=== PATIENT | male | born 1980 | race Hispanic/Latino ===

== ENCOUNTER 2016-08-01 06:41 | Inpatient (IN) | payer OTHER ==
[2016-08-01 07:32] LABS: Hematocrit 42.7 % (35.5-45.6); Mean Corpuscular HGB Conc 33 % (32-34); Mean Corpuscular Hemoglobin 29 pg (28-32); Mean Corpuscular Volume 87 fl (84-94); Platelet Count 276 K/mm3 (140-440); Red Cell Distribution Width 14.7 % (13.2-15.2); White Blood Count 20.2 K/mm3 (4.5-11.0)
[2016-08-01 07:39] LABS: Alanine Aminotransferase 15 units/L (7-56); Albumin 4.2 g/dL (3.9-5); Albumin/Globulin Ratio 1.2 %; Alkaline Phosphatase 102 units/L (35-129); Anion Gap 21 mmol/L; BUN/Creatinine Ratio 14.54; Blood Urea Nitrogen 16 mg/dL (9-20); Carbon Dioxide 27 mmol/L (22-30); Chloride 95.3 mmol/L (98-107); Glucose 222 mg/dL (75-100); Lipase 18 units/L (13-60); Potassium 3.5 mmol/L (3.6-5.0); Sodium 140 mmol/L (137-145); Total Protein 7.7 g/dL (6.3-8.2)
[2016-08-01] MEDS ORDERED: ZOFRAN IV ONE ×2 (08:30→09:52)
[2016-08-01] MEDS ORDERED: MORPHINE IV ONE (08:42)
[2016-08-01] MEDS ORDERED: NACL 0.9% 1000 ML 1,000 ML IV ONE (08:43)
[2016-08-01] MEDS ORDERED: ZOSYN/NS 4.5GM/100ML 4.5 GM/100 ML VIAL IV ONE (08:43)
--- NOTE | 2016-08-01 08:54 | XRay Report ---
AP CHEST: HISTORY: Hypertension AP view of the chest demonstrates a normal mediastinal and cardiac contour with clear lungs and normal bony and soft tissue structures. No significant change since 04/07/15. IMPRESSION: Unremarkable AP chest.
[2016-08-01 09:21] LABS: Urine Drugs of Abuse Note Disclamer
[2016-08-01 09:47] LABS: Bacteria,Urine 1+ /HPF (Negative); Bilirubin,Urine NEG (Negative); Blood,Urine NEG (Negative); Ketones,Urine TR mg/dL (Negative); Leukocyte Esterase,Urine TR (Negative); Mucus,Urine FEW /HPF; Nitrite,Urine NEG (Negative); Urobilinogen,Urine < 2.0 mg/dL (<2.0)
--- NOTE | 2016-08-01 10:09 | Ultrasound Report ---
ULTRASOUND ABDOMEN LIMITED INDICATION: Right upper quadrant pain, bilious vomiting, gas. COMPARISON: 04/08/2015. FINDINGS: Right upper quadrant ultrasound in part limited due to bowel gas, though again suggests slight diffuse hepatic echogenic coarsening with right hepatic lobe approximately 18 cm in length. No focal suspicious lesions or biliary dilatation. Gallbladder again demonstrates mild sludge/tiny stones and a small non-shadowing echogenicity along the gallbladder wall/possible 3 mm polyp as on image 31. No pericholecystic fluid or positive sonographic Suarez's sign. Gallbladder wall thickness is 2.5 mm. Common bile duct is now 12.5 mm, previously 5 mm. Normal imaged pancreas, though its tail and head obscured due to bowel gas. Normal IVC and abdominal aorta. Nonhydronephrotic 10.9 x 4.6 x 5 cm right kidney with cortical thickness of 1.9 cm. CONCLUSION: 1. New/increased CBD dilation at the ligia hepatis noted in this patient with known gallbladder sludge/stones, as described. Choledocholithiasis not excluded in the given setting without sonographic evidence to support acute cholecystitis at this time. Please correlate. 2. Few other findings, as above. Thank you for the opportunity to participate in this patient's care.
[2016-08-01 10:24] LABS: Basophils % (Manual) 0 % (0.0-1.8); Blastocytes % (Manual) 0 %; Diff Status Complete; Eosinophils % (Manual) 0 % (0.0-4.3); Platelet Estimate Cons; RBC Morphology Normal
--- NOTE | 2016-08-01 10:47 | History and Physical Report ---
History of Present Illness Date of examination: 08/01/16 Date of admission: 08/01/16 Chief complaint: N/V, abd pain History of present illness: This is a 34-year-old male who presents to the emergency department with complaints of nausea, vomiting and right lower quadrant abdominal pain. Patient denies any hematemesis, melena, hematochezia or diarrhea. The vomiting however is described as bilious. Patient denies any chest pain or shortness of breath. No recent sick contacts or travel. Mr Dawkins was seen here in Dec 2014 admitted with initial abdominal complaints and subsequently went into V fib arrest. He was followed by cardiology with normal coronaries per cath and EF of 45-50%. He was ultimately discharged at that time with a Life vest, however, per note, he refused to wear it after 1 week. Patient was also seen here in April 2015 complaints of nausea vomiting. A gallbladder ultrasound was done at that time suggestive of possible sludge versus stones in the gallbladder. However, there was no indication of obstructive process. CBD and gallbladder were within normal limits. Patient also has a significant past medical history of cocaine use and polysubstance abuse. Past History Past Medical History: other (V. fib arrest, cocaine use polysubstance abuse) Past Surgical History: No surgical history Social history: other (polysubstance abuse and cocaine) Family history: no significant family history Medications and Allergies Allergies Allergy/AdvReac Type Severity Reaction Status Date / Time No Known Allergies Allergy Verified 01/12/15 09:42 Home Medications Medication Instructions Recorded Confirmed Last Taken Type Methadone [Dolophine] 160 mg PO QDAY 01/10/15 08/01/16 01/09/15 History Active Meds: Active Medications Sodium Chloride (Nacl 0.9% 1000 Ml) 1,000 mls @ 125 mls/hr IV ONCE ONE Stop: 08/01/16 16:42 Last Admin: 08/01/16 09:20 Dose: 125 mls/hr Review of Systems All systems: negative Exam - Constitutional Vitals: Temp Pulse Resp BP Pulse Ox 98.1 F 63 16 174/83 100 08/01/16 07:22 08/01/16 09:20 08/01/16 09:20 08/01/16 09:20 08/01/16 09:20 General appearance: Present: no acute distress, well-nourished - EENT Eyes: Present: PERRL ENT: hearing intact, clear oral mucosa - Neck Neck: Present: supple, normal ROM - Respiratory Respiratory effort: normal Respiratory: bilateral: CTA - Cardiovascular Heart Sounds: Present: S1 & S2. Absent: rub, click - Extremities Extremities: pulses symmetrical, No edema Peripheral Pulses: within normal limits - Abdominal General gastrointestinal: Present: soft, non-tender, non-distended, normal bowel sounds Male genitourinary: Present: normal - Integumentary Integumentary: Present: clear, warm, dry - Musculoskeletal Musculoskeletal: gait normal, strength equal bilaterally - Psychiatric Psychiatric: appropriate mood/affect, intact judgment & insight - Neurologic Neurologic: CNII-XII intact, moves all extremities Results - Labs CBC & Chem 7: 08/01/16 07:07 08/01/16 07:07 Labs: Laboratory Last Values WBC 20.2 K/mm3 (4.5-11.0) H 08/01/16 07:07 RBC 4.90 M/mm3 (3.65-5.03) 08/01/16 07:07 Hgb 14.0 gm/dl (11.8-15.2) 08/01/16 07:07 Hct 42.7 % (35.5-45.6) 08/01/16 07:07 MCV 87 fl (84-94) 08/01/16 07:07 MCH 29 pg (28-32) 08/01/16 07:07 MCHC 33 % (32-34) 08/01/16 07:07 RDW 14.7 % (13.2-15.2) 08/01/16 07:07 Plt Count 276 K/mm3 (140-440) 08/01/16 07:07 Add Manual Diff Complete 08/01/16 07:07 Total Counted 100 08/01/16 07:07 Seg Neuts % (Manual) 89.0 % (40.0-70.0) H 08/01/16 07:07 Band Neutrophils % 0 % 08/01/16 07:07 Lymphocytes % (Manual) 6.0 % (13.4-35.0) L 08/01/16 07:07 Reactive Lymphs % (Man) 0 % 08/01/16 07:07 Monocytes % (Manual) 5.0 % (0.0-7.3) 08/01/16 07:07 Eosinophils % (Manual) 0 % (0.0-4.3) 08/01/16 07:07 Basophils % (Manual) 0 % (0.0-1.8) 08/01/16 07:07 Metamyelocytes % 0 % 08/01/16 07:07 Myelocytes % 0 % 08/01/16 07:07 Promyelocytes % 0 % 08/01/16 07:07 Blast Cells % 0 % 08/01/16 07:07 Nucleated RBC % Not Reportable 08/01/16 07:07 Seg Neutrophils # Man 18.0 K/mm3 (1.8-7.7) H 08/01/16 07:07 Band Neutrophils # 0.0 K/mm3 08/01/16 07:07 Lymphocytes # (Manual) 1.2 K/mm3 (1.2-5.4) 08/01/16 07:07 Abs React Lymphs (Man) 0.0 K/mm3 08/01/16 07:07 Monocytes # (Manual) 1.0 K/mm3 (0.0-0.8) H 08/01/16 07:07 Eosinophils # (Manual) 0.0 K/mm3 (0.0-0.4) 08/01/16 07:07 Basophils # (Manual) 0.0 K/mm3 (0.0-0.1) 08/01/16 07:07 Metamyelocytes # 0.0 K/mm3 08/01/16 07:07 Myelocytes # 0.0 K/mm3 08/01/16 07:07 Promyelocytes # 0.0 K/mm3 08/01/16 07:07 Blast Cells # 0.0 K/mm3 08/01/16 07:07 WBC Morphology Not Reportable 08/01/16 07:07 Hypersegmented Neuts Not Reportable 08/01/16 07:07 Hyposegmented Neuts Not Reportable 08/01/16 07:07 Hypogranular Neuts Not Reportable 08/01/16 07:07 Smudge Cells Not Reportable 08/01/16 07:07 Toxic Granulation Not Reportable 08/01/16 07:07 Toxic Vacuolation Not Reportable 08/01/16 07:07 Dohle Bodies Not Reportable 08/01/16 07:07 Pelger-Huet Anomaly Not Reportable 08/01/16 07:07 Gi Rods Not Reportable 08/01/16 07:07 Platelet Estimate Cons 08/01/16 07:07 Clumped Platelets Not Reportable 08/01/16 07:07 Plt Clumps, EDTA Not Reportable 08/01/16 07:07 Large Platelets Not Reportable 08/01/16 07:07 Giant Platelets Not Reportable 08/01/16 07:07 Platelet Satelliting Not Reportable 08/01/16 07:07 Plt Morphology Comment Not Reportable 08/01/16 07:07 RBC Morphology Normal 08/01/16 07:07 Dimorphic RBCs Not Reportable 08/01/16 07:07 Polychromasia Not Reportable 08/01/16 07:07 Hypochromasia Not Reportable 08/01/16 07:07 Poikilocytosis Not Reportable 08/01/16 07:07 Anisocytosis Not Reportable 08/01/16 07:07 Microcytosis Not Reportable 08/01/16 07:07 Macrocytosis Not Reportable 08/01/16 07:07 Spherocytes Not Reportable 08/01/16 07:07 Pappenheimer Bodies Not Reportable 08/01/16 07:07 Sickle Cells Not Reportable 08/01/16 07:07 Target Cells Not Reportable 08/01/16 07:07 Tear Drop Cells Not Reportable 08/01/16 07:07 Ovalocytes Not Reportable 08/01/16 07:07 Helmet Cells Not Reportable 08/01/16 07:07 Tabares-[place] Bodies Not Reportable 08/01/16 07:07 [place] Rings Not Reportable 08/01/16 07:07 Reese Cells Not Reportable 08/01/16 07:07 Bite Cells Not Reportable 08/01/16 07:07 Crenated Cell Not Reportable 08/01/16 07:07 Elliptocytes Not Reportable 08/01/16 07:07 Acanthocytes (Spur) Not Reportable 08/01/16 07:07 Rouleaux Not Reportable 08/01/16 07:07 Hemoglobin C Crystals Not Reportable 08/01/16 07:07 Schistocytes Not Reportable 08/01/16 07:07 Malaria parasites Not Reportable 08/01/16 07:07 Chivo Bodies Not Reportable 08/01/16 07:07 Hem Pathologist Commnt No 08/01/16 07:07 Sodium 140 mmol/L (137-145) 08/01/16 07:07 Potassium 3.5 mmol/L (3.6-5.0) L 08/01/16 07:07 Chloride 95.3 mmol/L (98-107) L 08/01/16 07:07 Carbon Dioxide 27 mmol/L (22-30) 08/01/16 07:07 Anion Gap 21 mmol/L 08/01/16 07:07 BUN 16 mg/dL (9-20) 08/01/16 07:07 Creatinine 1.1 mg/dL (0.8-1.5) 08/01/16 07:07 Estimated GFR > 60 ml/min 08/01/16 07:07 BUN/Creatinine Ratio 14.54 % 08/01/16 07:07 Glucose 222 mg/dL (75-100) H 08/01/16 07:07 Calcium 10.0 mg/dL (8.4-10.2) 08/01/16 07:07 Total Bilirubin 0.60 mg/dL (0.1-1.2) 08/01/16 07:07 AST 8 units/L (5-40) 08/01/16 07:07 ALT 15 units/L (7-56) 08/01/16 07:07 Alkaline Phosphatase 102 units/L (35-129) 08/01/16 07:07 Troponin T < 0.010 ng/mL (0.00-0.029) 08/01/16 07:07 Total Protein 7.7 g/dL (6.3-8.2) 08/01/16 07:07 Albumin 4.2 g/dL (3.9-5) 08/01/16 07:07 Albumin/Globulin Ratio 1.2 % 08/01/16 07:07 Lipase 18 units/L (13-60) 08/01/16 07:07 Urine Color Yellow (Yellow) 08/01/16 09:13 Urine Turbidity Clear (Clear) 08/01/16 09:13 Urine pH 6.0 (5.0-7.0) 08/01/16 09:13 Ur Specific [place] 1.018 (1.003-1.030) 08/01/16 09:13 Urine Protein 30 mg/dl mg/dL (Negative) 08/01/16 09:13 Urine Glucose (UA) Neg mg/dL (Negative) 08/01/16 09:13 Urine Ketones Tr mg/dL (Negative) 08/01/16 09:13 Urine Blood Neg (Negative) 08/01/16 09:13 Urine Nitrite Neg (Negative) 08/01/16 09:13 Urine Bilirubin Neg (Negative) 08/01/16 09:13 Urine Urobilinogen < 2.0 mg/dL (<2.0) 08/01/16 09:13 Ur Leukocyte Esterase Tr (Negative) 08/01/16 09:13 Urine WBC (Auto) 5.0 /HPF (0.0-6.0) 08/01/16 09:13 Urine RBC (Auto) 1.0 /HPF (0.0-6.0) 08/01/16 09:13 U Epithel Cells (Auto) 3.0 /HPF (0-13.0) 08/01/16 09:13 Urine Bacteria (Auto) 1+ /HPF (Negative) 08/01/16 09:13 Calcium Oxalate Crystal 1+ 08/01/16 09:13 Urine Mucus Few /HPF 08/01/16 09:13 Assessment and Plan Assessment and plan: Nausea and vomiting. Continue supportive care. Antiemetics. CBD dilatation.? Choledocholithiasis. Consult GI for further evaluation. Consider surgery consultation. Abdominal pain. As above. Patient does have significant leukocytosis. ? Acute cholecystitis. Check HIDA scan. GI consultation pending. Nonischemic cardiomyopathy. Cardiology evaluation. History of V. fib arrest. Medical noncompliance. History of polysubstance abuse.
[2016-08-01] MEDS ORDERED: MILK OF MAGNESIA PO PRN (10:56)
[2016-08-01] MEDS ORDERED: DULCOLAX PR PRN (10:56)
[2016-08-01] MEDS ORDERED: TYLENOL PO PRN (10:56)
--- NOTE | 2016-08-01 11:03 | Emergency Department Report ---
ED General Adult HPI - General Chief complaint: Chest Pain Stated complaint: CHEST PAIN Time Seen by Provider: 08/01/16 08:17 Source: patient Mode of arrival: Ambulatory Limitations: No Limitations - History of Present Illness Initial comments: In triage as stated that the patient complained of chest and abdominal pain that started at 2 AM with nausea vomiting. The patient does not describe chest pain to me at all. He describes a diffuse abdominal pain which is mostly on the right side of his abdomen. Apparently during his hospitalization in 2004 he was found to have gallbladder sludge and stones. He has a history of cardiomyopathy and previous cardiac arrest. He states that he "gave his chest back". He was previous determined to be noncompliant with wearing his LifeVest. He sustained a cardiac arrest after polysubstance abuse. He has previously been on amiodarone as well. He has had recurrent vomiting which appears to be bilious in nature. He does not report any problems with his bowel movements or apparent GI bleeding. He likewise does not report fever or chills. -: hour(s) Location: abdomen Radiation: non-radiation Severity scale (0 -10): 5 Quality: aching Consistency: intermittent Improves with: none Worsens with: none Associated Symptoms: nausea/vomiting Treatments Prior to Arrival: none - Related Data Home Medications Medication Instructions Recorded Confirmed Last Taken Methadone [Dolophine] 160 mg PO QDAY 01/10/15 08/01/16 01/09/15 Allergies Allergy/AdvReac Type Severity Reaction Status Date / Time No Known Allergies Allergy Verified 01/12/15 09:42 ED Review of Systems ROS: Stated complaint: CHEST PAIN Other details as noted in HPI Constitutional: denies: chills, fever Eyes: denies: eye pain, eye discharge, vision change ENT: denies: ear pain, throat pain Respiratory: denies: cough, shortness of breath, wheezing Cardiovascular: denies: chest pain, palpitations Endocrine: no symptoms reported Gastrointestinal: abdominal pain, nausea, vomiting. denies: diarrhea Genitourinary: denies: urgency, dysuria Musculoskeletal: denies: back pain, joint swelling, arthralgia Skin: denies: rash, lesions Neurological: denies: headache, weakness, paresthesias Psychiatric: denies: anxiety, depression Hematological/Lymphatic: denies: easy bleeding, easy bruising ED Past Medical Hx - Past Medical History Previous Medical History?: No Hx Congestive Heart Failure: No Hx Diabetes: No Hx Asthma: No Hx COPD: No - Surgical History Past Surgical History?: No - Social History Smoking Status: Current Every Day Smoker Substance Use Type: Marijuana - Medications Home Medications: Home Medications Medication Instructions Recorded Confirmed Last Taken Type Methadone [Dolophine] 160 mg PO QDAY 01/10/15 08/01/16 01/09/15 History ED Physical Exam - General Limitations: No Limitations General appearance: alert, in no apparent distress - Head Head exam: Present: atraumatic, normocephalic - Eye Eye exam: Present: normal appearance, PERRL, EOMI. Absent: scleral icterus - ENT ENT exam: Present: mucous membranes moist - Neck Neck exam: Present: normal inspection - Respiratory Respiratory exam: Present: normal lung sounds bilaterally. Absent: respiratory distress - Cardiovascular Cardiovascular Exam: Present: regular rate, normal rhythm. Absent: systolic murmur, diastolic murmur, rubs, gallop - GI/Abdominal GI/Abdominal exam: Present: soft, normal bowel sounds. Absent: distended, tenderness, guarding, rebound, rigid, organomegaly, mass, bruit, pulsatile mass , hernia (the patient has a remarkably normal abdominal exam) - Rectal Rectal exam: Present: deferred - Extremities Exam Extremities exam: Present: normal inspection - Back Exam Back exam: Present: normal inspection - Neurological Exam Neurological exam: Present: alert, oriented X3, CN II-XII intact. Absent: motor sensory deficit - Psychiatric Psychiatric exam: Present: normal affect, normal mood - Skin Skin exam: Present: warm, dry, intact, normal color. Absent: rash ED Course Vital Signs 08/01/16 08/01/16 08/01/16 06:52 07:22 09:20 Temperature 98.1 F 98.1 F Pulse Rate 59 L 66 63 Respiratory 18 16 Rate Blood Pressure 201/105 Blood Pressure 176/89 174/83 [Right] O2 Sat by Pulse 100 100 100 Oximetry - Reevaluation(s) Reevaluation #1: Given analgesia and antiemetic. Spoke to Dr. Fonseca. The patient was admitted to the hospital service for further care and evaluation. I gave him Zosyn considering his elevated white blood cell count and history of gallstones. 08/01/16 11:01 Reevaluation #2: I see that the ultrasound showed increased CBD. Choledocholithiasis cannot be excluded. Further care and evaluation per Dr. Fonseca and I suppose GI consultation. 08/01/16 11:02 ED Medical Decision Making - Lab Data Result diagrams: 08/01/16 07:07 08/01/16 07:07 Laboratory Results - last 24 hr 08/01/16 08/01/16 08/01/16 07:07 07:07 09:13 WBC 20.2 H RBC 4.90 Hgb 14.0 Hct 42.7 MCV 87 MCH 29 MCHC 33 RDW 14.7 Plt Count 276 Add Manual Diff Complete Total Counted 100 Seg Neuts % (Manual) 89.0 H Band Neutrophils % 0 Lymphocytes % (Manual) 6.0 L Reactive Lymphs % (Man) 0 Monocytes % (Manual) 5.0 Eosinophils % (Manual) 0 Basophils % (Manual) 0 Metamyelocytes % 0 Myelocytes % 0 Promyelocytes % 0 Blast Cells % 0 Nucleated RBC % Not Reportable Seg Neutrophils # Man 18.0 H Band Neutrophils # 0.0 Lymphocytes # (Manual) 1.2 Abs React Lymphs (Man) 0.0 Monocytes # (Manual) 1.0 H Eosinophils # (Manual) 0.0 Basophils # (Manual) 0.0 Metamyelocytes # 0.0 Myelocytes # 0.0 Promyelocytes # 0.0 Blast Cells # 0.0 WBC Morphology Not Reportable Hypersegmented Neuts Not Reportable Hyposegmented Neuts Not Reportable Hypogranular Neuts Not Reportable Smudge Cells Not Reportable Toxic Granulation Not Reportable Toxic Vacuolation Not Reportable Dohle Bodies Not Reportable Pelger-Huet Anomaly Not Reportable Gi Rods Not Reportable Platelet Estimate Cons Clumped Platelets Not Reportable Plt Clumps, EDTA Not Reportable Large Platelets Not Reportable Giant Platelets Not Reportable Platelet Satelliting Not Reportable Plt Morphology Comment Not Reportable RBC Morphology Normal Dimorphic RBCs Not Reportable Polychromasia Not Reportable Hypochromasia Not Reportable Poikilocytosis Not Reportable Anisocytosis Not Reportable Microcytosis Not Reportable Macrocytosis Not Reportable Spherocytes Not Reportable Pappenheimer Bodies Not Reportable Sickle Cells Not Reportable Target Cells Not Reportable Tear Drop Cells Not Reportable Ovalocytes Not Reportable Helmet Cells Not Reportable Tabares-[place] Bodies Not Reportable [place] Rings Not Reportable Reese Cells Not Reportable Bite Cells Not Reportable Crenated Cell Not Reportable Elliptocytes Not Reportable Acanthocytes (Spur) Not Reportable Rouleaux Not Reportable Hemoglobin C Crystals Not Reportable Schistocytes Not Reportable Malaria parasites Not Reportable [place] Bodies Not Reportable Hem Pathologist Commnt No Sodium 140 Potassium 3.5 L Chloride 95.3 L Carbon Dioxide 27 Anion Gap 21 BUN 16 Creatinine 1.1 Estimated GFR > 60 BUN/Creatinine Ratio 14.54 Glucose 222 H Calcium 10.0 Total Bilirubin 0.60 AST 8 ALT 15 Alkaline Phosphatase 102 Troponin T < 0.010 Total Protein 7.7 Albumin 4.2 Albumin/Globulin Ratio 1.2 Lipase 18 Urine Color Yellow Urine Turbidity Clear Urine pH 6.0 Ur Specific [place] 1.018 Urine Protein 30 mg/dl Urine Glucose (UA) Neg Urine Ketones Tr Urine Blood Neg Urine Nitrite Neg Urine Bilirubin Neg Urine Urobilinogen < 2.0 Ur Leukocyte Esterase Tr Urine WBC (Auto) 5.0 Urine RBC (Auto) 1.0 U Epithel Cells (Auto) 3.0 Urine Bacteria (Auto) 1+ Calcium Oxalate Crystal 1+ Urine Mucus Few Urine Opiates Screen Ur Barbiturates Screen Ur Phencyclidine Scrn Ur Amphetamines Screen Urine Cocaine Screen 08/01/16 09:13 WBC RBC Hgb Hct MCV MCH MCHC RDW Plt Count Add Manual Diff Total Counted Seg Neuts % (Manual) Band Neutrophils % Lymphocytes % (Manual) Reactive Lymphs % (Man) Monocytes % (Manual) Eosinophils % (Manual) Basophils % (Manual) Metamyelocytes % Myelocytes % Promyelocytes % Blast Cells % Nucleated RBC % Seg Neutrophils # Man Band Neutrophils # Lymphocytes # (Manual) Abs React Lymphs (Man) Monocytes # (Manual) Eosinophils # (Manual) Basophils # (Manual) Metamyelocytes # Myelocytes # Promyelocytes # Blast Cells # WBC Morphology Hypersegmented Neuts Hyposegmented Neuts Hypogranular Neuts Smudge Cells Toxic Granulation Toxic Vacuolation Dohle Bodies Pelger-Huet Anomaly Gi Rods Platelet Estimate Clumped Platelets Plt Clumps, EDTA Large Platelets Giant Platelets Platelet Satelliting Plt Morphology Comment RBC Morphology Dimorphic RBCs Polychromasia Hypochromasia Poikilocytosis Anisocytosis Microcytosis Macrocytosis Spherocytes Pappenheimer Bodies Sickle Cells Target Cells Tear Drop Cells Ovalocytes Helmet Cells Tabares-[place] Bodies [place] Rings [place] Cells Bite Cells Crenated Cell Elliptocytes Acanthocytes (Spur) Rouleaux Hemoglobin C Crystals Schistocytes Malaria parasites [place] Bodies Hem Pathologist Commnt Sodium Potassium Chloride Carbon Dioxide Anion Gap BUN Creatinine Estimated GFR BUN/Creatinine Ratio Glucose Calcium Total Bilirubin AST ALT Alkaline Phosphatase Troponin T Total Protein Albumin Albumin/Globulin Ratio Lipase Urine Color Urine Turbidity Urine pH Ur Specific [place] Urine Protein Urine Glucose (UA) Urine Ketones Urine Blood Urine Nitrite Urine Bilirubin Urine Urobilinogen Ur Leukocyte Esterase Urine WBC (Auto) Urine RBC (Auto) U Epithel Cells (Auto) Urine Bacteria (Auto) Calcium Oxalate Crystal Urine Mucus Urine Opiates Screen Presumptive negative Ur Barbiturates Screen Presumptive negative Ur Phencyclidine Scrn Presumptive negative Ur Amphetamines Screen Presumptive negative Urine Cocaine Screen Presumptive negative - EKG Data -: EKG Interpreted by Me EKG shows normal: sinus rhythm - EKG Data Interpretation: nonspecific ST-T wave rosas - Radiology Data Radiology results: report reviewed Critical care attestation.: If time is entered above; I have spent that time in minutes in the direct care of this critically ill patient, excluding procedure time. ED Disposition Clinical Impression: Common bile duct dilation, Cardiomyopathy Bilious vomiting Qualifiers: Nausea presence: with nausea Qualified Code(s): R11.14 - Bilious vomiting Opiate dependence Qualifiers: Substance use status: uncomplicated Qualified Code(s): F11.20 - Opioid dependence, uncomplicated Disposition: OP ADMITTED IP TO THIS HOSP Is pt being admited?: Yes Does the pt Need Aspirin: Yes Condition: Stable Referrals: PRIMARY CARE, [Primary Care Provider] - 3-5 Days Time of Disposition: 11:04
[2016-08-01] MEDS ORDERED: BABY ASPIRIN PO ONE ×2 (11:05→15:00)
--- NOTE | 2016-08-01 11:20 | Admit Criteria Form ---
Admission Criteria Documentation: GALLBLADDER OR BILE DUCT INFLAMMATION OR STONE Clinical Indications for Admission to Inpatient Care ( Place 'X' for any and all applicable criteria): Admission is indicated for patients with ANY ONE of the following(1)(2)(3)(4)(5) : [ ]I. Acute cholecystitis as indicated by ALL of the following: [ ]a) Right upper quadrant pain, mass, or tenderness [ ]b) Systemic signs of inflammation indicated by ANY ONE of the following: [ ]i) Fever [ ]ii) C-reactive protein level greater than 10 mg/L (95 nmol/L) [ ]iii) White blood cell count greater than 10,000/mm3 (10 x109/L) or less than 4000/mm3 (4 x109/L) [X]II. Inpatient admission required rather than observation care (Also use Gallbladder or Bile Duct Inflammation or Stone: Observation Care as appropriate) because of ANY ONE of the following: [ ]a) Common bile duct obstruction diagnosed [X]b) Vomiting that is severe or persistent [ ]c) Severe pain requiring acute inpatient management [ ]d) Signs of intestinal obstruction or peritonitis [A] [ ]e) Severe electrolyte abnormalities requiring inpatient care [ ]f) Absent bowel sounds with complete ileus(8) [ ]g) Hemodynamic instability [ ]h) High fever or infection requiring inpatient admission as indicated by ANY ONE of the following (9): [ ]1) Appropriate outpatient or observation care antimicrobial Treatment. unavailable, not effective, or not feasible [ ]2) Temperature greater than 104.9 degrees F (40.5 degrees C) (oral) [ ]3) Temperature greater than 103.1 degrees F (39.5 degrees C) (oral) or less than 96.8 degrees F (36 degrees C) (rectal) that does not respond to all emergency treatment measures [ ]4) Documented bacteremia [ ]i) IV fluid to replace significant ongoing losses (greater than 3 L/m2 per day) [ ]j) Percutaneous or open drainage (eg, abscess, biliary tract) procedures [ ]k) Immediate inpatient surgery [ ]l) Other condition, treatment or monitoring requiring inpatient admission [ ]III. Acute cholangitis as indicated by ALL of the following(9)(10): [ ]a) Systemic signs of inflammation indicated by ANY ONE of the following: [ ]i) Fever [ ]ii) C-reactive protein level greater than 10 mg/L (95 nmol /L) [ ]iii) White blood cell count greater than 10,000/mm3 (10 x109/L) or less than 4000/mm3 (4 x109/L) [X]b) Evidence of common bile duct disease indicated by ANY ONE of the following: [ ]i) Total serum bilirubin level greater than or equal to 2 mg/dL (34 micromoles/L) [ ]ii) Liver function test (alkaline phosphatase (ALP), r- glutamyltransferase (GGT), aspartate aminotransferase (AST), or alanine aminotransferase (ALT)) greater than 1.5 times the upper limit of normal[B] [X]iii) Hepatobiliary imaging showing biliary dilatation or evidence of etiology (eg, stricture, stone, previously placed stent) Extended stay beyond goal length of stay may be needed for (1)(2)): [ ]a) Bacteremia or Hemodynamic instability [ ]b) Cholecystectomy [ ]c) Other surgical procedure(24) [ ]d) Percutaneous or endoscopic ultrasound-guided cholecystostomy The original [facility] content created by [facility] has been revised. The portions of the content which have been revised are identified through the use of italic text or in bold, and [facility] has neither reviewed nor approved the modified material. All other unmodified content is copyright [facility]. Please see references footnoted in the original [facility] edition 2016 Admission Criteria Met: Yes
[2016-08-01] MEDS ORDERED: CORDARONE 150 MG in D5W 97 ML IV ONE (13:50)
[2016-08-01] MEDS ORDERED: CORDARONE 900 MG in D5W 482 ML IV SCH (14:00)
[2016-08-01] MEDS: MORPHINE IV PRN ×2 (14:09→22:55)
--- NOTE | 2016-08-01 14:51 | Cat Scan Report ---
CT HEAD WITHOUT CONTRAST INDICATION: Headache. COMPARISON: 04/07/2015. FINDINGS: Noncontrast head CT demonstrates normal ventricles and sulci without acute or recent infarct, hemorrhage, mass effect or midline shift. No abnormal extra-axial fluid collections. Posterior fossa structures and basilar cisterns appear within normal limits. Slight rightward nasal septal deviation and an approximately 6 mm rightward nasal septal spur partially imaged. Mild left frontal sinus mucosal thickening now remains, axial image 8, series 3. Clear remainder imaged paranasal sinuses and left mastoid air cells. Mild right mastoiditis. Intact calvarium. Normal overlying scalp soft tissues. CONCLUSION: No acute intracranial CT abnormality and few other findings, as described. Thank you for the opportunity to participate in this patient's care.
[2016-08-01] MEDS: ZOFRAN IV PRN ×2 (15:40→22:53)
--- NOTE | 2016-08-01 15:43 | Gastroenterology Consultation ---
<GILMA JORDAN - Last Filed: 08/01/16 15:44> History of Present Illness - Reason for Consult Consult date: 08/01/16 N/V Requesting physician: MICHAEL SARAH - History of Present Illness Mr. Dawkins is a 36 y/o male admitted with N/V. He states this began 2-3 days ago with associated weight loss and abdominal cramping while vomiting. He denies diarrhea or evidence of bleeding. Mr Dawkins has just been transferred to the ICU for multiple episodes of v fib. He was seen in consult in 2014 for N/V and has a previous hx of V fib cardiac arrest. ( sent home on lifevest, however only had for 1-2 weeks per report) In 2016 he was found lethargic by his mother and brought to the ED. At that time he did describe "stomach issues" and was found to have gallstones and sludge per US , but not obstructed. At that time it was felt that the patient had withdrawl symptoms from Methadone/ cocaine causing his N/V. His UDS is positive for methadone and THC ( he admits to occasional use) US again reveals gallstones and increased biliary dilation, however LFTS are WNL. At this time he is being monitored in ICU for V fib. Past History Past Medical History: other (V. fib arrest, cocaine use polysubstance abuse) Past Surgical History: No surgical history Social history: other (polysubstance abuse and cocaine) Family history: no significant family history Medications and Allergies Allergies Allergy/AdvReac Type Severity Reaction Status Date / Time No Known Allergies Allergy Verified 01/12/15 09:42 Home Medications Medication Instructions Recorded Confirmed Last Taken Type Methadone [Dolophine] 160 mg PO QDAY 01/10/15 08/01/16 01/09/15 History Active Meds: Active Medications Acetaminophen (Tylenol) 650 mg PO Q4H PRN PRN Reason: Pain MILD(1-3)/Fever >100.5/FAM Bisacodyl (Dulcolax) 10 mg [place] QDAY PRN PRN Reason: Constipation unrelieved by MOM Enoxaparin Sodium (Lovenox) 30 mg SUB-Q QDAY LYNDSAY Sodium Chloride (Nacl 0.9% 1000 Ml) 1,000 mls @ 125 mls/hr IV ONCE ONE Stop: 08/01/16 16:42 Last Admin: 08/01/16 09:20 Dose: 125 mls/hr Sodium Chloride (Nacl 0.9% 1000 Ml) 1,000 mls @ 75 mls/hr IV DIRECT LYNDSAY Piperacillin Sod/Tazobactam Sod (Zosyn/Ns 4.5gm/100ml) 4.5 gm in 100 mls @ 200 mls/hr IV Q8HR LYNDSAY PRN Reason: Protocol Amiodarone HCl 900 mg/ (Dextrose) 500 mls @ 33.33 mls/hr IV DIRECT LYNDSAY; 1 MG /MIN PRN Reason: Protocol Magnesium Hydroxide (Milk Of Magnesia) 30 ml PO Q4H PRN PRN Reason: Constipation Morphine Sulfate (Morphine) 1 mg IV Q4H PRN PRN Reason: Pain Last Admin: 08/01/16 14:09 Dose: 1 mg Ondansetron HCl (Zofran) 4 mg IV Q8H PRN PRN Reason: N/V unrelieved by Reglan Review of Systems - Review of Systems All systems: negative Constitutional: weakness, poor appetite Gastrointestinal: abdominal pain, nausea, vomiting Exam - Constitutional Vital Signs: Temp Pulse Resp BP Pulse Ox 97.9 F 34 L 12 125/76 100 08/01/16 13:42 08/01/16 13:42 08/01/16 13:42 08/01/16 13:42 08/01/16 13:42 General appearance: no acute distress - EENT Eyes: EOM intact ENT: hearing intact - Neck Neck: supple - Respiratory Respiratory: bilateral: CTA - Cardiovascular Rhythm: irregularly irregular Heart Sounds: Present: S1 & S2 Extremities: No edema - Gastrointestinal General gastrointestinal: Present: soft, non-tender, normal bowel sounds - Integumentary Integumentary: Present: warm, dry - Neurologic Neurological: alert and oriented x3 - Psychiatric Psychiatric: appropriate mood/affect, cooperative - Labs CBC & Chem 7: 08/01/16 07:07 08/01/16 07:07 Lab Results: Laboratory Results - last 24 hr 08/01/16 08/01/16 11:22 12:56 Lactic Acid 1.70 Troponin T < 0.010 Assessment and Plan 1. N/V -Etiology unclear although this could be related to gallbladder vs polysubstance abuse vs cardiac. -Patient has been transferred to ICU for closer monitoring after episodes of v fib, the patient fell in the room and hit his head. CT of head negative. -LFTS WNL, Lipase WNL -Consider HIDA scan, although would wait until patient can be seen/ cleared by cardiology -Ok to start clear liquids for now -Anti-emetics as needed -noted WBC 20K. -No reports of diarrhea. -Further Recommendations to follow. <BETY SALAZAR - Last Filed: 08/01/16 16:57> Medications and Allergies Active Meds: Active Medications Acetaminophen (Tylenol) 650 mg PO Q4H PRN PRN Reason: Pain MILD(1-3)/Fever >100.5/FAM Bisacodyl (Dulcolax) 10 mg CO QDAY PRN PRN Reason: Constipation unrelieved by MOM Enoxaparin Sodium (Lovenox) 30 mg SUB-Q QDAY LYNDSAY Sodium Chloride (Nacl 0.9% 1000 Ml) 1,000 mls @ 75 mls/hr IV DIRECT LYNDSAY Piperacillin Sod/Tazobactam Sod (Zosyn/Ns 4.5gm/100ml) 4.5 gm in 100 mls @ 200 mls/hr IV Q8HR LYNDSAY PRN Reason: Protocol Last Admin: 08/01/16 16:20 Dose: 200 mls/hr Amiodarone HCl 900 mg/ (Dextrose) 500 mls @ 33.33 mls/hr IV DIRECT LYNDSAY; 1 MG /MIN PRN Reason: Protocol Last Admin: 08/01/16 16:30 Dose: 1 mg/min, 33.33 mls/hr Magnesium Hydroxide (Milk Of Magnesia) 30 ml PO Q4H PRN PRN Reason: Constipation Morphine Sulfate (Morphine) 1 mg IV Q4H PRN PRN Reason: Pain Last Admin: 08/01/16 14:09 Dose: 1 mg Ondansetron HCl (Zofran) 4 mg IV Q8H PRN PRN Reason: N/V unrelieved by Reglan Last Admin: 08/01/16 15:40 Dose: 4 mg Exam - Constitutional Vital Signs: Temp Pulse Resp BP Pulse Ox 99.0 F 63 7 L 151/81 100 08/01/16 16:00 08/01/16 16:41 08/01/16 16:41 08/01/16 16:41 08/01/16 16:41 - Labs CBC & Chem 7: 08/01/16 07:07 08/01/16 07:07 Lab Results: Laboratory Results - last 24 hr 08/01/16 08/01/16 11:22 12:56 Lactic Acid 1.70 Troponin T < 0.010 Assessment and Plan N/V may be cardiac, etc, but if it persists, need to implicate GB. HIDA scan may not be of much benefit in elucidating cause. Expectant management as pt improves.
--- NOTE | 2016-08-01 15:59 | Consultation ---
History of Present Illness Consult date: 08/01/16 Consult reason: other (Vfib) History of present illness: Patient is a 36yr old male has a history of dilated cardiomyopathy. A cardiac cath done 2 years ago normal coronaries but a systolic dysfunction, ejection fraction 35-40%. He also has a history of ventricular fibrillation and is noncompliant with medications and outpatient cardiac follow up. He presents to the hospital with abdominal pain associated with nausea vomiting and admitted for further evaluation. Patient was transferred to telemetry and it's reported patient was found on the floor after a syncopal episode. Review telemetry strips shows ventricular fibrillation with the morphology of torsade. A code MET was not called. Patient is currently resting in bed and feel comfortable. Stable sinus rhythm on telemetry monitoring. Labs show a potassium of 3.5 but a magnesium was not measured. Past History Past Medical History: hypertension, other (V. fib arrest, cocaine use polysubstance abuse) Past Surgical History: No surgical history Social history: other (polysubstance abuse and cocaine) Family history: no significant family history Medications and Allergies Allergies Allergy/AdvReac Type Severity Reaction Status Date / Time No Known Allergies Allergy Verified 01/12/15 09:42 Home Medications Medication Instructions Recorded Confirmed Last Taken Type Methadone [Dolophine] 160 mg PO QDAY 01/10/15 08/01/16 01/09/15 History Active Meds: Active Medications Acetaminophen (Tylenol) 650 mg PO Q4H PRN PRN Reason: Pain MILD(1-3)/Fever >100.5/FAM Bisacodyl (Dulcolax) 10 mg [place] QDAY PRN PRN Reason: Constipation unrelieved by MOM Enoxaparin Sodium (Lovenox) 30 mg SUB-Q QDAY LYNDSAY Sodium Chloride (Nacl 0.9% 1000 Ml) 1,000 mls @ 125 mls/hr IV ONCE ONE Stop: 08/01/16 16:42 Last Admin: 08/01/16 09:20 Dose: 125 mls/hr Sodium Chloride (Nacl 0.9% 1000 Ml) 1,000 mls @ 75 mls/hr IV DIRECT LYNDSAY Piperacillin Sod/Tazobactam Sod (Zosyn/Ns 4.5gm/100ml) 4.5 gm in 100 mls @ 200 mls/hr IV Q8HR LYNDSAY PRN Reason: Protocol Amiodarone HCl 900 mg/ (Dextrose) 500 mls @ 33.33 mls/hr IV DIRECT LYNDSAY; 1 MG /MIN PRN Reason: Protocol Magnesium Hydroxide (Milk Of Magnesia) 30 ml PO Q4H PRN PRN Reason: Constipation Morphine Sulfate (Morphine) 1 mg IV Q4H PRN PRN Reason: Pain Last Admin: 08/01/16 14:09 Dose: 1 mg Ondansetron HCl (Zofran) 4 mg IV Q8H PRN PRN Reason: N/V unrelieved by Reglan Physical Examination Vital Signs Temp Pulse BP Pulse Ox 98.1 F 59 L 201/105 100 08/01/16 06:52 08/01/16 06:52 08/01/16 06:52 08/01/16 06:52 General appearance: no acute distress HEENT: Positive: PERRL Neck: Positive: trachea midline Cardiac: Positive: Reg Rate and Rhythm Results 08/01/16 07:07 08/01/16 07:07 Assessment and Plan Ventricular fibrillation with morphology of torsades Abdominal pain with n/v Leukocytosis Hypertension Nonischemic cardiomyopathy [facility] 2015: normal coronaries, EF 35% Noncompliant with medications and outpatient cardiac f/u Recommendations: GI evaluation of abdominal pain. Check a magnesium. Initiate IV amiodarone drip. Echocardiogram for LVEF assessment Transfer to CCU for close monitoring.
[2016-08-01] MEDS: ZOSYN/NS 4.5GM/100ML 4.5 GM/100 ML VIAL IV SCH ×3 (16:20→22:53)
[2016-08-01] MEDS ORDERED: XYLOCAINE CARDIAC IV STA (17:21)
[2016-08-01] MEDS ORDERED: MAGNESIUM SULFATE 1 GM in NACL 0.9% 50 ML IV ONE (17:30)
[2016-08-01] MEDS ORDERED: LOPRESSOR PO STA (17:30)
[2016-08-01] MEDS ORDERED: VASELINE LIP THERAPY TP ONE (18:38)
[2016-08-01] MEDS ORDERED: LOPRESSOR PO SCH (22:00)
[2016-08-01] MEDS: KCL 10MEQ/100ML 10 MEQ/100 ML BAG IV SCH (23:46)
[2016-08-01] MEDS: XYLOCAINE/D5W 2GM/500ML DRIP 2,000 MG/500 ML BAG IV SCH (23:49)
[2016-08-02 00:02] LABS: Hemoglobin 14.2 gm/dl (11.8-15.2); Mean Corpuscular HGB Conc 35 % (32-34); Mean Corpuscular Hemoglobin 30 pg (28-32); Mean Corpuscular Volume 86 fl (84-94); Platelet Count 298 K/mm3 (140-440); Red Blood Count 4.78 M/mm3 (3.65-5.03); Red Cell Distribution Width 14.4 % (13.2-15.2)
[2016-08-02] MEDS ORDERED: KCL 10MEQ/100ML 10 MEQ/100 ML BAG IV SCH (00:30)
[2016-08-02 00:37] LABS: Basophils % (Manual) 0 % (0.0-1.8); Blastocytes % (Manual) 0 %; Eosinophils % (Manual) 0 % (0.0-4.3)
[2016-08-02 00:39] LABS: Diff Status Complete; Platelet Estimate Consistent w Auto; RBC Morphology Normal
[2016-08-02] MEDS: KCL 10MEQ/100ML 10 MEQ/100 ML BAG IV SCH ×8 (00:49→23:01)
[2016-08-02 05:39] LABS: Hematocrit 44.6 % (35.5-45.6); Hemoglobin 14.8 gm/dl (11.8-15.2); Mean Corpuscular HGB Conc 33 % (32-34); Mean Corpuscular Hemoglobin 29 pg (28-32); Mean Corpuscular Volume 88 fl (84-94); Platelet Count 287 K/mm3 (140-440); Red Blood Count 5.09 M/mm3 (3.65-5.03); Red Cell Distribution Width 14.6 % (13.2-15.2)
[2016-08-02] MEDS ORDERED: MORPHINE IV ONE (05:44)
[2016-08-02 05:57] LABS: Anion Gap 23 mmol/L; BUN/Creatinine Ratio 14.44; Blood Urea Nitrogen 13 mg/dL (9-20); Calcium 9.3 mg/dL (8.4-10.2); Carbon Dioxide 22 mmol/L (22-30); Chloride 98.9 mmol/L (98-107); Glucose 139 mg/dL (75-100); Potassium 3.8 mmol/L (3.6-5.0); Sodium 140 mmol/L (137-145)
[2016-08-02] MEDS: ZOFRAN IV PRN (05:57)
[2016-08-02] MEDS: ZOSYN/NS 4.5GM/100ML 4.5 GM/100 ML VIAL IV SCH ×3 (05:58→21:40)
[2016-08-02 06:25] LABS: Basophils % (Manual) 0 % (0.0-1.8); Blastocytes % (Manual) 0 %; Eosinophils % (Manual) 0 % (0.0-4.3); RBC Morphology Normal
[2016-08-02 06:26] LABS: Diff Status Complete; Platelet Estimate Consistent w Auto
[2016-08-02] MEDS: BABY ASPIRIN PO SCH (09:17)
[2016-08-02] MEDS: ZESTRIL PO SCH (09:17)
[2016-08-02] MEDS: LOVENOX SUB-Q SCH (09:17)
[2016-08-02] MEDS: NACL 0.9% 1000 ML 1,000 ML IV SCH (09:27)
--- NOTE | 2016-08-02 09:51 | Progress Note ---
Assessment and Plan This is a 34-year-old male with history of cocaine use and polysubstance abuse presents to the emergency department with complaints of nausea, vomiting and right lower quadrant abdominal pain. ( Off note Patient was here in April 2015 complaints of nausea vomiting. A gallbladder ultrasound was done at that time suggestive of possible sludge versus stones in the gallbladder without any indication of obstructive process). After admission he developed Vfib and transferred to ICU. Now she is on amioderone drip. He had similar episode in Dec 2014 admitted with initial abdominal complaints and subsequently went into V fib arrest. He was followed by cardiology that time with normal coronaries per cath and EF was 45-50%. He was ultimately discharged at that time with a Life vest, however, per note, he refused to wear it after 1 week. V-fib arrest - on amioderone drip now - cardiology recommended he will need ICD Polysubatance abuse - on methadone as outpt -off methadone now per cardiology recommendation -placed on CIWA protocol to prevent withdrawl Leukocytosis with fever - cont abx for now, follow sepsis protocol - follow cx work up Abdominal pain with N/V - had HIDA scan today showed billiary dyskinesia - states his pain improved today - started on cleared liquid today Subjective Date of service: 08/02/16 Interval history: Patient seen and examined. Medical records and medication list reviewed. No acute event overnight noted by the RN. Patient denies any chest pain or difficulty breathing. Denies any abdominal pain, wants to eat Discussed plan of care at bedside with patient. Objective - Exam Narrative Exam: GENERAL: well-developed and well-nourished WM lying on bed appeared to be in no discomfort. HEENT: Normocephalic. Atraumatic. No conjunctival congestion or icterus. Patient has moist mucous membranes. NECK: Supple. Trachea midline. CHEST/LUNGS: Clear to auscultated bilaterally, breathing nonlabored. No wheezes crackles or rhonchi. HEART/CARDIOVASCULAR: Regular in rate and rhythm. S1 and S2 positive. ABDOMEN: Abdomen is soft, nontender. Patient has normal bowel sounds. SKIN: There is no rash. Warm and dry. NEURO: No focal motor deficit. Follows command. MUSCULOSKELETAL: No joint effusion or tenderness. EXTRIMITY: No edema, no cyanosis or clubbing. PSYCH: Cooperative. - Constitutional Vitals: Vital Signs - 12hr 08/01/16 08/01/16 08/01/16 22:01 22:07 22:11 Temperature Pulse Rate 50 L 53 L 57 L Pulse Rate [ Left] Respiratory Rate Blood Pressure 217/118 217/118 217/118 O2 Sat by Pulse 100 100 100 Oximetry 08/01/16 08/01/16 08/01/16 22:21 22:31 22:41 Temperature Pulse Rate 64 53 L Pulse Rate [ Left] Respiratory 9 L 10 L Rate Blood Pressure 217/118 217/148 217/148 O2 Sat by Pulse 100 100 100 Oximetry 08/01/16 08/01/16 08/01/16 22:51 23:01 23:11 Temperature Pulse Rate 56 L 55 L 55 L Pulse Rate [ Left] Respiratory 9 L 8 L 10 L Rate Blood Pressure 217/148 217/148 162/94 O2 Sat by Pulse 99 99 100 Oximetry 08/01/16 08/01/16 08/01/16 23:21 23:31 23:41 Temperature Pulse Rate 65 57 L 68 Pulse Rate [ Left] Respiratory 10 L 9 L 12 Rate Blood Pressure 162/94 162/94 162/94 O2 Sat by Pulse 100 100 100 Oximetry 08/01/16 08/02/16 08/02/16 23:51 00:00 00:01 Temperature 97.8 F Pulse Rate 59 L 55 L Pulse Rate [ 54 L Left] Respiratory 11 L 12 Rate Blood Pressure 162/94 131/66 O2 Sat by Pulse 97 98 Oximetry 08/02/16 08/02/16 08/02/16 00:11 00:21 00:31 Temperature Pulse Rate 54 L 55 L 55 L Pulse Rate [ Left] Respiratory 14 23 26 H Rate Blood Pressure 131/66 131/66 131/66 O2 Sat by Pulse 96 97 97 Oximetry 08/02/16 08/02/16 08/02/16 00:41 00:51 01:01 Temperature Pulse Rate 53 L 52 L 55 L Pulse Rate [ Left] Respiratory 10 L 22 21 Rate Blood Pressure 131/66 131/66 131/66 O2 Sat by Pulse 98 97 97 Oximetry 08/02/16 08/02/16 08/02/16 01:11 01:21 01:31 Temperature Pulse Rate 55 L 62 50 L Pulse Rate [ Left] Respiratory 9 L 11 L 11 L Rate Blood Pressure 131/66 131/66 131/76 O2 Sat by Pulse 100 96 98 Oximetry 08/02/16 08/02/16 08/02/16 01:32 01:41 01:51 Temperature 101.5 F H Pulse Rate 53 L 52 L Pulse Rate [ Left] Respiratory 19 25 H Rate Blood Pressure 131/76 131/76 O2 Sat by Pulse 98 98 Oximetry 08/02/16 08/02/16 08/02/16 02:01 02:11 02:21 Temperature Pulse Rate 52 L 50 L 52 L Pulse Rate [ Left] Respiratory 15 17 20 Rate Blood Pressure 74/32 74/32 74/32 O2 Sat by Pulse 97 97 97 Oximetry 08/02/16 08/02/16 08/02/16 02:31 02:41 02:50 Temperature Pulse Rate 51 L 52 L 57 L Pulse Rate [ Left] Respiratory 17 18 8 L Rate Blood Pressure 142/78 142/78 142/78 O2 Sat by Pulse 98 98 98 Oximetry 08/02/16 08/02/16 08/02/16 03:01 03:11 03:21 Temperature Pulse Rate 53 L 53 L 53 L Pulse Rate [ Left] Respiratory 16 19 15 Rate Blood Pressure 142/76 142/76 142/78 O2 Sat by Pulse 99 97 98 Oximetry 08/02/16 08/02/16 08/02/16 03:31 03:41 03:51 Temperature Pulse Rate 56 L 55 L 54 L Pulse Rate [ Left] Respiratory 11 L 9 L 19 Rate Blood Pressure 142/78 142/78 142/78 O2 Sat by Pulse 100 97 96 Oximetry 08/02/16 08/02/16 08/02/16 04:00 04:01 04:11 Temperature 98.0 F Pulse Rate 58 L 55 L Pulse Rate [ Left] Respiratory 12 20 Rate Blood Pressure 142/78 169/108 O2 Sat by Pulse 100 96 Oximetry 08/02/16 08/02/16 08/02/16 04:21 04:31 04:41 Temperature Pulse Rate 53 L 51 L 54 L Pulse Rate [ Left] Respiratory 22 20 11 L Rate Blood Pressure 169/108 169/108 169/108 O2 Sat by Pulse 97 97 99 Oximetry 08/02/16 08/02/16 08/02/16 04:51 05:01 05:11 Temperature Pulse Rate 63 66 74 Pulse Rate [ Left] Respiratory 13 13 13 Rate Blood Pressure 169/108 169/108 169/108 O2 Sat by Pulse 99 100 99 Oximetry 08/02/16 08/02/16 08/02/16 05:20 05:30 05:40 Temperature Pulse Rate 68 67 66 Pulse Rate [ Left] Respiratory 12 10 L 9 L Rate Blood Pressure 142/78 142/78 142/78 O2 Sat by Pulse 99 100 100 Oximetry 08/02/16 08/02/16 08/02/16 05:50 06:00 06:11 Temperature Pulse Rate 69 62 59 L Pulse Rate [ Left] Respiratory 11 L 13 10 L Rate Blood Pressure 142/78 142/78 177/126 O2 Sat by Pulse 99 96 96 Oximetry 08/02/16 08/02/16 08/02/16 06:21 06:31 06:41 Temperature Pulse Rate 57 L 57 L 64 Pulse Rate [ Left] Respiratory 17 20 12 Rate Blood Pressure 177/126 127/70 127/70 O2 Sat by Pulse 96 98 99 Oximetry 08/02/16 08/02/16 08/02/16 06:51 07:01 07:11 Temperature Pulse Rate 65 61 56 L Pulse Rate [ Left] Respiratory 9 L 11 L 17 Rate Blood Pressure 127/70 127/70 127/70 O2 Sat by Pulse 100 98 97 Oximetry 08/02/16 08/02/16 08/02/16 07:21 07:31 07:41 Temperature Pulse Rate 61 59 L 60 Pulse Rate [ Left] Respiratory 17 11 L 11 L Rate Blood Pressure 127/70 172/94 172/94 O2 Sat by Pulse 100 98 98 Oximetry 08/02/16 08/02/16 08/02/16 07:51 08:00 08:39 Temperature 98 F Pulse Rate 72 58 L Pulse Rate [ Left] Respiratory 15 11 L Rate Blood Pressure 172/94 163/95 O2 Sat by Pulse 96 100 Oximetry 08/02/16 08/02/16 08/02/16 08:41 08:51 09:01 Temperature Pulse Rate 55 L 58 L 58 L Pulse Rate [ Left] Respiratory 7 L 8 L 11 L Rate Blood Pressure 163/95 163/95 143/93 O2 Sat by Pulse 100 99 97 Oximetry 08/02/16 08/02/16 08/02/16 09:11 09:17 09:21 Temperature Pulse Rate 62 57 L 55 L Pulse Rate [ Left] Respiratory 8 L 10 L Rate Blood Pressure 143/93 143/93 172/94 O2 Sat by Pulse 100 100 Oximetry - Labs CBC & Chem 7: 08/02/16 05:02 08/02/16 17:50 Labs: Abnormal lab results 08/01/16 08/02/16 08/02/16 Range/Units 23:30 05:02 05:02 WBC 29.0 H 27.0 H (4.5-11.0) K/mm3 RBC 5.09 H (3.65-5.03) M/mm3 MCHC 35 H (32-34) % Seg Neuts % (Manual) 78.0 H 72.0 H (40.0-70.0) % Lymphocytes % (Manual) 11.0 L (13.4-35.0) % Seg Neutrophils # Man 22.6 H 19.4 H (1.8-7.7) K/mm3 Monocytes # (Manual) 1.7 H 1.9 H (0.0-0.8) K/mm3 Glucose 139 H (75-100) mg/dL
--- NOTE | 2016-08-02 10:37 | Progress Note ---
Assessment and Plan TdP Prolong QT interval on ECG Previously on methadone as outpatient Abdominal pain, leukocytosis Rule out choledocolithiasis/cholangitis Polysubstance abuse Recommendations: Avoid all QT prolonging drugs including methadone Change zofran to reglan Discontinue metoprolol in order to avoid bradycardia induced TdP in acquired LQT Aggressive potassium and magnesium replacement Discontinue amiodarone and continue lidocaine (lidocaine shortens the action potential and is favored in the management of TdP) If recurrent TdP despite above measures than transvenous pacing at a heart rate > 100 is warranted Echocardiogram Eventually AICD insertion pending resolution of current active infection/ abdominal process Will continue to follow closely Subjective Date of service: 08/02/16 Principal diagnosis: TdP Interval history: No acute events overnight Objective Vital Signs Temp Pulse Pulse Resp BP BP BP 08/02/16 10:11 59 L 16 163/91 08/02/16 10:01 65 11 L 163/91 08/02/16 09:51 62 10 L 150/89 08/02/16 09:41 58 L 7 L 150/89 08/02/16 09:30 58 L 8 L 150/89 08/02/16 09:21 55 L 10 L 172/94 08/02/16 09:17 57 L 143/93 08/02/16 09:11 62 8 L 143/93 08/02/16 09:01 58 L 11 L 143/93 08/02/16 08:51 58 L 8 L 163/95 08/02/16 08:41 55 L 7 L 163/95 08/02/16 08:39 58 L 11 L 163/95 08/02/16 08:00 98 F 08/02/16 07:51 72 15 172/94 08/02/16 07:41 60 11 L 172/94 08/02/16 07:31 59 L 11 L 172/94 08/02/16 07:21 61 17 127/70 08/02/16 07:11 56 L 17 127/70 08/02/16 07:01 61 11 L 127/70 08/02/16 06:51 65 9 L 127/70 08/02/16 06:41 64 12 127/70 08/02/16 06:31 57 L 20 127/70 08/02/16 06:21 57 L 17 177/126 08/02/16 06:11 59 L 10 L 177/126 08/02/16 06:00 62 13 142/78 08/02/16 05:50 69 11 L 142/78 08/02/16 05:40 66 9 L 142/78 08/02/16 05:30 67 10 L 142/78 08/02/16 05:20 68 12 142/78 08/02/16 05:11 74 13 169/108 08/02/16 05:01 66 13 169/108 08/02/16 04:51 63 13 169/108 08/02/16 04:41 54 L 11 L 169/108 08/02/16 04:31 51 L 20 169/108 08/02/16 04:21 53 L 22 169/108 08/02/16 04:11 55 L 20 169/108 08/02/16 04:01 58 L 12 142/78 08/02/16 04:00 98.0 F 08/02/16 03:51 54 L 19 142/78 08/02/16 03:41 55 L 9 L 142/78 08/02/16 03:31 56 L 11 L 142/78 08/02/16 03:21 53 L 15 142/78 08/02/16 03:11 53 L 19 142/76 08/02/16 03:01 53 L 16 142/76 08/02/16 02:50 57 L 8 L 142/78 08/02/16 02:41 52 L 18 142/78 08/02/16 02:31 51 L 17 142/78 08/02/16 02:21 52 L 20 74/32 08/02/16 02:11 50 L 17 74/32 08/02/16 02:01 52 L 15 74/32 08/02/16 01:51 52 L 25 H 131/76 08/02/16 01:41 53 L 19 131/76 08/02/16 01:32 101.5 F H 08/02/16 01:31 50 L 11 L 131/76 08/02/16 01:21 62 11 L 131/66 08/02/16 01:11 55 L 9 L 131/66 08/02/16 01:01 55 L 21 131/66 08/02/16 00:51 52 L 22 131/66 08/02/16 00:41 53 L 10 L 131/66 08/02/16 00:31 55 L 26 H 131/66 05/03/17 00:21 55 L 23 131/66 08/02/16 00:11 54 L 14 131/66 08/02/16 00:01 55 L 12 131/66 08/02/16 00:00 97.8 F 54 L 08/01/16 23:51 59 L 11 L 162/94 08/01/16 23:41 68 12 162/94 08/01/16 23:31 57 L 9 L 162/94 08/01/16 23:21 65 10 L 162/94 08/01/16 23:11 55 L 10 L 162/94 08/01/16 23:01 55 L 8 L 217/148 08/01/16 22:51 56 L 9 L 217/148 08/01/16 22:41 53 L 10 L 217/148 08/01/16 22:31 64 9 L 217/148 08/01/16 22:21 217/118 08/01/16 22:11 57 L 217/118 08/01/16 22:07 53 L 217/118 08/01/16 22:01 50 L 217/118 08/01/16 21:51 55 L 217/118 08/01/16 21:50 58 L 217/118 08/01/16 21:41 66 217/118 08/01/16 21:33 55 L 217/118 08/01/16 21:31 59 L 217/118 08/01/16 21:21 52 L 158/83 08/01/16 21:11 59 L 158/83 08/01/16 21:01 62 158/83 08/01/16 21:00 57 L 08/01/16 20:51 54 L 191/82 08/01/16 20:41 61 191/82 08/01/16 20:31 58 L 24 191/82 08/01/16 20:21 61 168/55 08/01/16 20:11 53 L 168/55 08/01/16 20:01 56 L 161/82 08/01/16 20:00 98.9 F 60 22 08/01/16 19:51 53 L 168/55 08/01/16 19:41 61 13 168/55 08/01/16 19:31 67 14 168/55 08/01/16 19:21 62 15 145/76 08/01/16 19:11 63 14 145/76 08/01/16 19:01 58 L 8 L 145/76 08/01/16 18:51 63 7 L 137/72 08/01/16 18:41 73 12 137/72 08/01/16 18:30 74 10 L 137/72 08/01/16 18:21 64 11 L 141/69 08/01/16 18:11 71 9 L 141/69 08/01/16 18:01 76 14 129/67 08/01/16 17:51 78 11 L 129/67 08/01/16 17:47 69 129/67 08/01/16 17:41 67 9 L 129/67 08/01/16 17:31 72 12 129/67 08/01/16 17:21 79 10 L 156/91 08/01/16 17:11 96 H 18 156/91 08/01/16 17:01 284 H 29 H 151/81 08/01/16 16:51 76 10 L 151/81 08/01/16 16:41 63 7 L 151/81 08/01/16 16:30 67 9 L 151/81 08/01/16 16:21 66 12 150/92 08/01/16 16:11 66 9 L 150/92 08/01/16 16:01 74 9 L 150/92 08/01/16 16:00 99.0 F 08/01/16 15:51 67 8 L 200/90 08/01/16 15:41 72 9 L 200/90 08/01/16 15:31 84 11 L 200/90 08/01/16 15:21 74 16 08/01/16 15:11 93 H 15 08/01/16 15:00 75 11 L 08/01/16 14:56 82 16 08/01/16 13:42 97.9 F 34 L 12 125/76 08/01/16 13:15 58 L 08/01/16 11:31 83 182/92 08/01/16 11:24 98.1 F 81 16 174/88 08/01/16 11:21 98 H 182/92 08/01/16 11:11 75 182/88 08/01/16 11:01 76 182/88 Pulse Ox 08/02/16 10:11 99 08/02/16 10:01 99 08/02/16 09:51 98 05/03/17 09:41 98 08/02/16 09:30 97 08/02/16 09:21 100 08/02/16 09:17 08/02/16 09:11 100 08/02/16 09:01 97 08/02/16 08:51 99 08/02/16 08:41 100 08/02/16 08:39 100 08/02/16 08:00 08/02/16 07:51 96 08/02/16 07:41 98 08/02/16 07:31 98 08/02/16 07:21 100 08/02/16 07:11 97 08/02/16 07:01 98 08/02/16 06:51 100 08/02/16 06:41 99 08/02/16 06:31 98 08/02/16 06:21 96 08/02/16 06:11 96 08/02/16 06:00 96 08/02/16 05:50 99 08/02/16 05:40 100 08/02/16 05:30 100 08/02/16 05:20 99 08/02/16 05:11 99 08/02/16 05:01 100 08/02/16 04:51 99 08/02/16 04:41 99 08/02/16 04:31 97 08/02/16 04:21 97 08/02/16 04:11 96 08/02/16 04:01 100 08/02/16 04:00 08/02/16 03:51 96 08/02/16 03:41 97 08/02/16 03:31 100 08/02/16 03:21 98 08/02/16 03:11 97 08/02/16 03:01 99 08/02/16 02:50 98 08/02/16 02:41 98 08/02/16 02:31 98 08/02/16 02:21 97 08/02/16 02:11 97 08/02/16 02:01 97 08/02/16 01:51 98 08/02/16 01:41 98 08/02/16 01:32 05 01:31 98 08/02/16 01:21 96 08/02/16 01:11 100 08/02/16 01:01 97 08/02/16 00:51 97 05 00:41 98 05/03/17 00:31 97 08/02/16 00:21 97 08/02/16 00:11 96 08/02/16 00:01 98 08/02/16 00:00 08/01/16 23:51 97 08/01/16 23:41 100 08/01/16 23:31 100 08/01/16 23:21 100 08/01/16 23:11 100 08/01/16 23:01 99 08/01/16 22:51 99 08/01/16 22:41 100 08/01/16 22:31 100 08/01/16 22:21 100 08/01/16 22:11 100 08/01/16 22:07 100 08/01/16 22:01 100 08/01/16 21:51 99 08/01/16 21:50 98 08/01/16 21:41 100 08/01/16 21:33 100 08/01/16 21:31 100 08/01/16 21:21 100 08/01/16 21:11 99 08/01/16 21:01 100 08/01/16 21:00 08/01/16 20:51 100 08/01/16 20:41 100 08/01/16 20:31 100 08/01/16 20:21 100 08/01/16 20:11 100 08/01/16 20:01 100 08/01/16 20:00 08/01/16 19:51 08/01/16 19:41 08/01/16 19:31 08/01/16 19:21 100 08/01/16 19:11 100 08/01/16 19:01 100 08/01/16 18:51 100 08/01/16 18:41 100 08/01/16 18:30 100 08/01/16 18:21 100 08/01/16 18:11 100 08/01/16 18:01 100 08/01/16 17:51 100 08/01/16 17:47 05 17:41 100 08/01/16 17:31 100 08/01/16 17:21 100 05 17:11 100 05 17:01 97 08/01/16 16:51 100 08/01/16 16:41 100 08/01/16 16:30 100 0517 16:21 100 08/01/16 16:11 98 08/01/16 16:01 99 08/01/16 16:00 08/01/16 15:51 100 08/01/16 15:41 100 08/01/16 15:31 100 08/01/16 15:21 100 08/01/16 15:11 87 08/01/16 15:00 100 08/01/16 14:56 08/01/16 13:42 100 08/01/16 13:15 08/01/16 11:31 100 08/01/16 11:24 96 08/01/16 11:21 100 08/01/16 11:11 100 08/01/16 11:01 100 - Physical Examination HEENT: Positive: PERRL Neck: Positive: trachea midline Cardiac: Positive: Reg Rate and Rhythm Lungs: Positive: Normal Exam - Labs and Meds CBC 08/01/16 08/02/16 Range/Units 23:30 05:02 WBC 29.0 H 27.0 H (4.5-11.0) K/mm3 RBC 4.78 5.09 H (3.65-5.03) M/mm3 Hgb 14.2 14.8 (11.8-15.2) gm/dl Hct 41.0 44.6 (35.5-45.6) % Plt Count 298 287 (140-440) K/mm3 Comprehensive Metabolic Panel 08/02/16 Range/Units 05:02 Sodium 140 (137-145) mmol/L Potassium 3.8 (3.6-5.0) mmol/L Chloride 98.9 (98-107) mmol/L Carbon Dioxide 22 (22-30) mmol/L BUN 13 (9-20) mg/dL Creatinine 0.9 (0.8-1.5) mg/dL Glucose 139 H (75-100) mg/dL Calcium 9.3 (8.4-10.2) mg/dL
[2016-08-02] MEDS ORDERED: REGLAN IV PRN (10:43)
--- NOTE | 2016-08-02 10:54 | Consultation ---
History of Present Illness Consult date: 08/02/16 Requesting physician: MICHAEL SARAH History of present illness: PULMONARY/CCM CONSULT NOTE (Full dictation # [id number]) Please see dictated notes for full details Past History Past Medical History: hypertension, other (V. fib arrest, cocaine use polysubstance abuse) Past Surgical History: No surgical history Social history: other (polysubstance abuse and cocaine) Family history: no significant family history Medications and Allergies Allergies Allergy/AdvReac Type Severity Reaction Status Date / Time No Known Allergies Allergy Verified 01/12/15 09:42 Home Medications Medication Instructions Recorded Confirmed Last Taken Type Methadone [Dolophine] 160 mg PO QDAY 01/10/15 08/01/16 01/09/15 History Active Meds: Active Medications Acetaminophen (Tylenol) 650 mg PO Q4H PRN PRN Reason: Pain MILD(1-3)/Fever >100.5/FAM Aspirin (Baby Aspirin) 81 mg PO QDAY LYNDSAY Last Admin: 08/02/16 09:17 Dose: 81 mg Bisacodyl (Dulcolax) 10 mg MN QDAY PRN PRN Reason: Constipation unrelieved by MOM Enoxaparin Sodium (Lovenox) 40 mg SUB-Q QDAY LYNDSAY Last Admin: 08/02/16 09:17 Dose: 40 mg Sodium Chloride (Nacl 0.9% 1000 Ml) 1,000 mls @ 75 mls/hr IV DIRECT LYNDSAY Last Admin: 08/02/16 09:27 Dose: 75 mls/hr Piperacillin Sod/Tazobactam Sod (Zosyn/Ns 4.5gm/100ml) 4.5 gm in 100 mls @ 200 mls/hr IV Q8HR LYNDSAY PRN Reason: Protocol Last Admin: 08/02/16 05:58 Dose: 200 mls/hr Lidocaine HCl/Dextrose (Xylocaine/D5w 2gm/500ml Drip) 2,000 mg in 500 mls @ 30 mls/hr IV DIRECT LYNDSAY; 2 MG/MIN PRN Reason: Protocol Last Admin: 08/01/16 23:49 Dose: 2 mg/min, 30 mls/hr Magnesium Sulfate (Magnesium Sulfate 2gm/50ml) 2 gm in 50 mls @ 100 mls/hr IV ONCE ONE Stop: 08/02/16 11:14 Potassium Chloride (Kcl 10meq/100ml) 10 meq in 100 mls @ 100 mls/hr IV Q1H LYNDSAY Stop: 08/02/16 12:59 Lisinopril (Zestril) 10 mg PO QDAY LYNDSAY Last Admin: 08/02/16 09:17 Dose: 10 mg Magnesium Hydroxide (Milk Of Magnesia) 30 ml PO Q4H PRN PRN Reason: Constipation Metoclopramide HCl (Reglan) 10 mg IV Q6H PRN PRN Reason: Nausea And Vomiting Morphine Sulfate (Morphine) 1 mg IV Q4H PRN PRN Reason: Pain Last Admin: 08/01/16 22:55 Dose: 1 mg Physical Examination Vital signs: Vital Signs Temp Pulse BP Pulse Ox 98.1 F 59 L 201/105 100 08/01/16 06:52 08/01/16 06:52 08/01/16 06:52 08/01/16 06:52 Results - Laboratory Findings CBC and BMP: 08/02/16 05:02 08/02/16 05:02 Abnormal lab findings: Abnormal Labs 08/01/16 08/02/16 08/02/16 23:30 05:02 05:02 WBC 29.0 H 27.0 H RBC 5.09 H MCHC 35 H Seg Neuts % (Manual) 78.0 H 72.0 H Lymphocytes % (Manual) 11.0 L Seg Neutrophils # Man 22.6 H 19.4 H Monocytes # (Manual) 1.7 H 1.9 H Glucose 139 H
[2016-08-02] MEDS ORDERED: HALDOL IV PRN (10:55)
[2016-08-02] MEDS ORDERED: KINEVAC IV ONE (11:36)
[2016-08-02] MEDS ORDERED: WATER FOR INJ (PF) 10 ML ONE (11:36)
[2016-08-02] MEDS ORDERED: MAGNESIUM SULFATE 2GM/50ML 2 GM/50 ML BAG IV ONE (12:00)
[2016-08-02] MEDS: MORPHINE IV PRN ×3 (12:49→20:37)
[2016-08-02] MEDS: ATIVAN IV PRN ×5 (12:49→20:37)
[2016-08-02] MEDS: PEPCID PO SCH (12:57)
--- NOTE | 2016-08-02 14:28 | Nuclear Medicine Report ---
Hepatobiliary scan with ejection fraction. History: Abdominal pain. Findings: Hepatic, gallbladder, and small bowel activity are normal. The ejection fraction which is calculated after the intravenous injection of 2.0 mcg of Kinevac measures 13% which is abnormally low. Impression: Findings are consistent with biliary dyskinesia or chronic cholecystitis.
--- NOTE | 2016-08-02 15:00 | Event Note ---
Date: 08/02/16 Pt has low GBEF = 13%. That along with gallstones, is certainly sufficient to cause intermittent N/V. Pt would benefit from CCX once medically stable. Will sign off. Please call as needed. Thanks.
[2016-08-02] MEDS: XYLOCAINE/D5W 2GM/500ML DRIP 2,000 MG/500 ML BAG IV SCH (16:21)
--- NOTE | 2016-08-02 16:29 | XRay Report ---
AP chest x-ray. History: Right PICC line placement. Findings: A right-sided PICC line terminates in the lower SVC, and there is no evidence of pneumothorax. The heart and lungs are normal.
[2016-08-02 17:39] LABS: Anion Gap 22 mmol/L; BUN/Creatinine Ratio 13.75; Blood Urea Nitrogen 11 mg/dL (9-20); Calcium 7.6 mg/dL (8.4-10.2); Carbon Dioxide 23 mmol/L (22-30); Chloride 98.7 mmol/L (98-107); Glucose 135 mg/dL (75-100); Sodium 135 mmol/L (137-145)
[2016-08-02 17:46] LABS: Potassium 8.6 mmol/L (3.6-5.0)
[2016-08-02] MEDS: XANAX PO SCH (21:41)
--- NOTE | 2016-08-03 | Consultation ---
CONSULTING PHYSICIAN: Dr. Fonseca. REASON FOR CONSULTATION: Critical care management, torsades de pointes. CHIEF COMPLAINT AND HISTORY OF PRESENT ILLNESS: The patient is a 36-year-old male with past medical history significant according to him for a diagnosis of polysubstance abuse and cocaine abuse. He tells me he is in a withdrawal program of some sort for which he is taking methadone and he quotes about 160 mg daily. He apparently had been in this hospital prior a few weeks I think ago, comes into the Emergency Room at this time with nausea, vomiting, right lower quadrant pain. The last time he was in the hospital, he was found to have amongst other things a nonischemic cardiomyopathy and at that time was discharged with a LifeVest secondary to arrhythmias. Gallbladder ultrasound at that time was suggested possible sludge versus cholelithiasis. At this time, he was admitted to the medical floor while the workup was going on the abdominal pain. While on the telemetry floor, he was found to have episodes of torsades/sustained polymorphic ventricular tachycardia, it caused a presyncopal episode in his room while on telemetry. His potassium level was normal, actually 5.0, magnesium was just below lower limits of normal. He was recommended for transfer to the intensive care unit, started on IV amiodarone and lidocaine, and we are asked to assist in management. When I stopped by to see him today, he was beginning to tell me he felt like he was withdrawing from the methadone. He denied any overt emesis. Denied chest pains. Denied palpitations. That really is as much of the history of this presentation as I have. PAST MEDICAL HISTORY: Hypertension, a prior VFib arrest, history of cocaine/polysubstance abuse and appears to be in a drug withdrawal program. PAST SURGICAL HISTORY: None. MEDICATIONS: He was on at the time I stopped by to see him, according to the medication administration record included the following: He was on a baby aspirin 81 mg p.o. daily, p.r.n. Dulcolax, Lovenox 40 mg subcutaneous daily, lisinopril 10 mg p.o. daily, Reglan 10 mg IV q.6h. p.r.n. nausea and vomiting, morphine 1 mg IV q.4h. p.r.n. pain, Zosyn 4.5 grams IV q.8h., and normal saline at 75 mL per hour. ALLERGIES: No known drug allergies. DIET: Well-built gentleman, slightly obese. Denies acute weight loss or gain, preceding few weeks to months. FAMILY AND SOCIAL HISTORY: Apparently, lives in the community. He does have a history of polysubstance abuse, cocaine abuse, tobacco use, history was denied at the time I asked him. REVIEW OF SYSTEMS: He had a syncopal episode. No new onset focal weakness. No new onset seizures. No gross hematochezia or melena. No gross hematuria or dysuria. No hematemesis, no hemoptysis. He denies palpitations. Complete review of systems obtained. Pertinent positives and/or negatives as in the body of history above, otherwise noncontributory. PHYSICAL EXAMINATION: VITAL SIGNS: At presentation, he was afebrile, temperature 98.1 with a pulse of 59, respiratory rate of 15, blood pressure 201/105, oxygen sats were 100% at that time. Inspired oxygen concentration was not recorded. HEAD, EYES, EARS, NOSE, AND THROAT: Pupils are equal, about 6-7 mm, reactive to light. Extraocular muscle movements appear intact. Oropharynx is a Mallampati #2. No significant posterior pharyngeal erythema. Grossly, no palpable lymph nodes in the supraclavicular or submandibular lymph node chains. LUNGS: Auscultation of both lung echavarria are unremarkable. Lungs are clear bilaterally. Slightly diminished bilateral breath sounds. HEART: Heart sounds 1 and 2 are heard at the time of my evaluation, regular rate and rhythm. ABDOMEN: Soft, full, bowel sounds are positive. Mild tenderness in the right lower quadrant region. EXTREMITIES: Without overt digital clubbing, cyanosis, or pedal edema. NEUROLOGIC: The exam was grossly nonfocal. He was emotionally labile. LABORATORY DATA: From my review are as follows: Admission white cell count 20,200 with a hemoglobin of 14.0, hematocrit of 42.7, and platelet count of 276. Serum sodium was 140, potassium 3.5, chloride 95, bicarbonate 27, BUN 16, creatinine 1.1, glucose 222. Lactic acid level was normal yesterday. Liver function tests within normal limits. Troponins within normal limits. Urinalysis, with trace leukocyte esterase, 5 white cells per high power field, 1+ bacteremia. Urine drug screen presumptive positive for benzos, marijuana, and methadone. Radiographic studies have been reviewed. Actually, I am unable to pull up the film. I have reviewed the radiologist's interpretation. A chest x-ray was done that was read as an unremarkable AP chest. Abdominal ultrasound was done that was reported as a new/increased common bile duct dilatation at the ligia hepatis and he has a HIDA scan pending. ASSESSMENT AND PLAN: We have a young gentleman really with multiple comorbidities. It may seem that he is becoming septic. I do note the leukocytosis, but certainly the bother also at this point is the arrhythmia. Now from a respiratory standpoint, he is doing relatively well. Aspiration precautions will be maintained. No indication for bronchodilators, oxygen will be titrated to keep sats greater than or equal to about 94% and I will follow him clinically. From a cardiovascular standpoint, he will continue the lidocaine and on the amiodarone drip, managed by Cardiology. His serum magnesium would certainly need to be brought up to a higher level, especially in the setting of torsades and I will be ordering a couple of grams of magnesium if he has not already received those. I will first of all actually get a stat magnesium level and go from there. Otherwise, I would defer to Cardiology. From a GI and nutritional standpoint, he has been seen by the store grocery merchandiser. A HIDA scan has been ordered. We will follow the reports of that and surgical intervention will be depending on the results of the HIDA and the GI evaluation certainly. From an infectious disease standpoint, we will continue with empiric Zosyn therapy at this point, I will get a CRP level. I will repeat the lactic acid level and trend as necessary. Anti-infectives will ultimately be deescalated based on results of clinical and microbiologic data. From a renal standpoint, we will follow the electrolytes, serum potassium is better today at 3.8. Inputs and outputs will be monitored. Electrolytes will be corrected as necessary. From a DELIVERY COORDINATOR standpoint, I will watch him clinically. Certainly, no CT of the head was done that I can pull a report on, but the exam is grossly nonfocal. From a psychiatric standpoint, we need to get records on his methadone and make sure that we find the way to control withdrawal symptoms. In the meantime, I will put a CIWA protocol in place. The fear is that methadone will increase his risk of going into further arrhythmias and at this point would rather not use that if we can avoid it. This is per the senior oracle dba on the case according to his nurse, but certainly methadone will cause that. So, I will defer to them. We will follow clinically and we will try and see if there is any other way we can control withdrawal symptoms without methadone. From a general and hospital healthcare maintenance standpoint, he is on DVT prophylaxis. He will be placed on GI prophylaxis. Flu and pneumonia vaccination will be per protocol. Thank you very much for the consult, Dr. Fonseca. We will follow along and make further recommendations as picture progresses/becomes clearer. At this point, I have spent about 30-35 minutes of critical care time without overlap and excluding any procedural time that may be necessary. He is critically ill on life-sustaining interventions including vasoactive medications and at risk for further deterioration including . JOB# [id number] VALERIANO/ZOE
[2016-08-03] MEDS: MORPHINE IV PRN ×6 (05:03→21:39)
[2016-08-03] MEDS: ZOSYN/NS 4.5GM/100ML 4.5 GM/100 ML VIAL IV SCH (05:04)
[2016-08-03] MEDS: ATIVAN IV PRN ×7 (05:05→21:40)
[2016-08-03 05:19] LABS: Basophils % (Auto) 0.8 % (0.0-1.8); Eosinophils % (Auto) 2.3 % (0.0-4.3); Hematocrit 38.3 % (35.5-45.6); Hemoglobin 12.8 gm/dl (11.8-15.2); Mean Corpuscular HGB Conc 33 % (32-34); Mean Corpuscular Hemoglobin 29 pg (28-32); Mean Corpuscular Volume 86 fl (84-94); Platelet Count 218 K/mm3 (140-440); Red Blood Count 4.44 M/mm3 (3.65-5.03); Red Cell Distribution Width 14.5 % (13.2-15.2); White Blood Count 15.1 K/mm3 (4.5-11.0)
[2016-08-03] MEDS: NACL 0.9% 1000 ML 1,000 ML IV SCH (05:19)
[2016-08-03 05:38] LABS: Anion Gap 17 mmol/L; BUN/Creatinine Ratio 11.66; Blood Urea Nitrogen 14 mg/dL (9-20); Calcium 8.5 mg/dL (8.4-10.2); Carbon Dioxide 23 mmol/L (22-30); Chloride 104.3 mmol/L (98-107); Glucose 114 mg/dL (75-100); Potassium 3.6 mmol/L (3.6-5.0); Sodium 141 mmol/L (137-145)
[2016-08-03] MEDS: ZESTRIL PO SCH (10:00)
[2016-08-03] MEDS: BABY ASPIRIN PO SCH (10:00)
[2016-08-03] MEDS: PEPCID PO SCH (10:01)
[2016-08-03] MEDS: LOVENOX SUB-Q SCH (10:01)
[2016-08-03] MEDS: XYLOCAINE/D5W 2GM/500ML DRIP 2,000 MG/500 ML BAG IV SCH (10:01)
[2016-08-03] MEDS: XANAX PO SCH ×2 (10:01→21:40)
--- NOTE | 2016-08-03 11:03 | Progress Note ---
Assessment and Plan - Patient Problems (1) Torsades de pointes Current Visit: Yes Status: Acute Plan to address problem: - no recurrence - electrolytes corrected - methadone on hold - on lidocaine drip - management per cardiology (2) Opiate dependence Current Visit: Yes Status: Acute Qualifiers: Substance use status: uncomplicated Complication of substance-induced condition: C Qualified Code(s): F11.20 - Opioid dependence, uncomplicated Plan to address problem: - use prn morphine in short term - also CIWA protocol oredered - may need to find other pain treatment modality even after AICD implantation re : arrhythmia risk (3) Common bile duct dilation Current Visit: Yes Status: Acute Plan to address problem: - will follow GI recs - no acute indication for surgery (4) Leukocytosis Current Visit: No Status: Acute Qualifiers: Leukocytosis type: L Qualified Code(s): D72.829 - Elevated white blood cell count, unspecified Plan to address problem: - will de-escalate AB's - all cultures NGTD - will get CRP level but lactate unremarkable (5) Discharge planning issues Current Visit: Yes Status: Acute Plan to address problem: - he remains critically ill on continues IV lidocaine and at risk for further deterioration including ...30' CCT ...will transfer to telemetry once cleared by cardiology Subjective Date of service: 08/03/16 Principal diagnosis: Polymorphic Ventricular Tachycardia Interval history: Seen and examined at bedside; 24 hour events reviewed; nursing and respiratory care staff consulted; no adverse overnight events reported to me; resting in bed ; remains on Lidocaine drip; denies acute chest pains or increased SOB; he is aching all over though Objective Vital Signs - 12hr 08/02/16 08/02/16 08/02/16 23:10 23:20 23:30 Temperature Pulse Rate 67 66 69 Pulse Rate [ Left] Respiratory 23 23 22 Rate Respiratory Rate [denies] Blood Pressure 119/66 119/66 119/66 O2 Sat by Pulse 96 97 97 Oximetry 08/02/16 08/02/16 08/03/16 23:40 23:50 00:00 Temperature 98.0 F Pulse Rate 68 70 66 Pulse Rate [ Left] Respiratory 21 13 27 H Rate Respiratory Rate [denies] Blood Pressure 119/66 119/66 112/61 O2 Sat by Pulse 97 96 98 Oximetry 08/03/16 08/03/16 08/03/16 00:10 00:20 00:30 Temperature Pulse Rate 60 74 58 L Pulse Rate [ Left] Respiratory 30 H 14 13 Rate Respiratory Rate [denies] Blood Pressure 112/61 112/61 112/61 O2 Sat by Pulse 99 96 97 Oximetry 08/03/16 08/03/16 08/03/16 00:40 00:50 01:00 Temperature Pulse Rate 59 L 61 60 Pulse Rate [ Left] Respiratory 20 20 22 Rate Respiratory Rate [denies] Blood Pressure 112/61 112/61 106/69 O2 Sat by Pulse 97 95 95 Oximetry 08/03/16 08/03/16 08/03/16 01:10 01:20 01:30 Temperature Pulse Rate 60 59 L 56 L Pulse Rate [ Left] Respiratory 24 21 21 Rate Respiratory Rate [denies] Blood Pressure 106/69 106/69 106/69 O2 Sat by Pulse 94 93 95 Oximetry 08/03/16 08/03/16 08/03/16 01:40 01:50 02:00 Temperature Pulse Rate 62 57 L 61 Pulse Rate [ 61 Left] Respiratory 22 18 20 Rate Respiratory Rate [denies] Blood Pressure 106/69 106/69 108/74 O2 Sat by Pulse 94 96 97 Oximetry 08/03/16 08/03/16 08/03/16 02:10 02:20 02:30 Temperature Pulse Rate 61 56 L 59 L Pulse Rate [ Left] Respiratory 23 12 22 Rate Respiratory Rate [denies] Blood Pressure 106/69 106/69 106/69 O2 Sat by Pulse 96 96 97 Oximetry 08/03/16 08/03/16 08/03/16 02:40 02:50 03:00 Temperature Pulse Rate 58 L 62 63 Pulse Rate [ Left] Respiratory 18 22 8 L Rate Respiratory Rate [denies] Blood Pressure 106/69 106/69 98/60 O2 Sat by Pulse 97 97 96 Oximetry 08/03/16 08/03/16 08/03/16 03:10 03:20 03:30 Temperature Pulse Rate 60 62 63 Pulse Rate [ Left] Respiratory 20 22 18 Rate Respiratory Rate [denies] Blood Pressure 108/74 108/74 108/74 O2 Sat by Pulse 96 96 97 Oximetry 08/03/16 08/03/16 08/03/16 03:40 03:50 04:00 Temperature 98.8 F Pulse Rate 63 60 58 L Pulse Rate [ Left] Respiratory 21 29 H 26 H Rate Respiratory Rate [denies] Blood Pressure 108/74 108/74 108/74 O2 Sat by Pulse 96 97 98 Oximetry 08/03/16 08/03/16 08/03/16 04:10 04:20 04:30 Temperature Pulse Rate 61 62 64 Pulse Rate [ Left] Respiratory 20 22 11 L Rate Respiratory Rate [denies] Blood Pressure 104/65 104/65 104/65 O2 Sat by Pulse 97 96 100 Oximetry 08/03/16 08/03/16 08/03/16 04:40 04:50 05:00 Temperature Pulse Rate 64 62 61 Pulse Rate [ Left] Respiratory 16 13 16 Rate Respiratory Rate [denies] Blood Pressure 104/65 104/65 118/77 O2 Sat by Pulse 98 96 96 Oximetry 08/03/16 08/03/16 08/03/16 05:03 05:10 05:20 Temperature Pulse Rate 60 66 Pulse Rate [ Left] Respiratory 13 26 H 24 Rate Respiratory Rate [denies] Blood Pressure 118/77 118/77 O2 Sat by Pulse 95 97 Oximetry 08/03/16 08/03/16 08/03/16 05:30 05:40 05:50 Temperature Pulse Rate 68 68 63 Pulse Rate [ Left] Respiratory 24 25 H 22 Rate Respiratory Rate [denies] Blood Pressure 118/77 118/77 118/77 O2 Sat by Pulse 95 95 94 Oximetry 08/03/16 08/03/16 08/03/16 06:00 06:10 06:20 Temperature Pulse Rate 55 L 60 61 Pulse Rate [ 59 L Left] Respiratory 21 28 H 21 Rate Respiratory Rate [denies] Blood Pressure 118/64 118/64 118/64 O2 Sat by Pulse 97 94 96 Oximetry 08/03/16 08/03/16 08/03/16 06:30 06:40 06:50 Temperature Pulse Rate 59 L 76 62 Pulse Rate [ Left] Respiratory 29 H 15 20 Rate Respiratory Rate [denies] Blood Pressure 118/64 118/64 118/64 O2 Sat by Pulse 96 99 96 Oximetry 08/03/16 08/03/16 08/03/16 07:00 07:10 07:20 Temperature Pulse Rate 57 L 64 57 L Pulse Rate [ Left] Respiratory 23 21 23 Rate Respiratory Rate [denies] Blood Pressure 115/69 115/69 115/69 O2 Sat by Pulse 96 97 98 Oximetry 08/03/16 08/03/16 08/03/16 07:30 07:35 07:40 Temperature Pulse Rate 68 76 Pulse Rate [ Left] Respiratory 20 13 Rate Respiratory Rate [denies] Blood Pressure 115/69 115/69 O2 Sat by Pulse 97 97 99 Oximetry 08/03/16 08/03/16 08/03/16 07:50 08:00 08:10 Temperature 97.9 F Pulse Rate 73 58 L 67 Pulse Rate [ Left] Respiratory 13 9 L 10 L Rate Respiratory Rate [denies] Blood Pressure 115/69 119/72 119/72 O2 Sat by Pulse 100 99 100 Oximetry 08/03/16 08/03/16 08/03/16 08:20 08:30 08:40 Temperature Pulse Rate 68 77 67 Pulse Rate [ Left] Respiratory 11 L 13 10 L Rate Respiratory Rate [denies] Blood Pressure 119/72 119/72 119/72 O2 Sat by Pulse 98 100 99 Oximetry 08/03/16 08/03/16 08/03/16 08:50 09:00 10:00 Temperature Pulse Rate 65 67 71 Pulse Rate [ 65 Left] Respiratory 16 25 H 16 Rate Respiratory 14 Rate [denies] Blood Pressure 119/72 123/79 125/82 O2 Sat by Pulse 97 96 100 Oximetry Constitutional: alert, appears uncomfortable Eyes: non-icteric ENT: oropharynx moist Neck: supple, no lymphadenopathy Effort: normal Ascultation: Bilateral: clear Cardiovascular: regular rate and rhythm Gastrointestinal: normoactive bowel sounds, soft, tender (mild RUQ), non- distended Integumentary: normal Extremities: no cyanosis, no edema, pink and warm, pulses normal, no ischemia or petechiae Neurologic: normal mental status, non-focal exam, pupils equal and round, motor strength normal and Psychiatric: other (emotionally labile) CBC and BMP: 08/03/16 04:50 08/03/16 04:50 Abnormal lab findings: Abnormal Labs 08/01/16 08/02/16 08/02/16 23:30 05:02 05:02 WBC 29.0 H 27.0 H RBC 5.09 H MCHC 35 H Dukes % (Auto) Dukes # Seg Neuts % (Manual) 78.0 H 72.0 H Lymphocytes % (Manual) 11.0 L Seg Neutrophils # Seg Neutrophils # Man 22.6 H 19.4 H Monocytes # (Manual) 1.7 H 1.9 H Sodium Potassium Glucose 139 H Calcium Phosphorus 08/02/16 08/02/16 08/02/16 05:02 16:35 17:50 WBC RBC MCHC [place]ukes % (Auto) Dukes # Seg Neuts % (Manual) Lymphocytes % (Manual) Seg Neutrophils # Seg Neutrophils # Man Monocytes # (Manual) Sodium 135 L Potassium 8.6 H* D 2.8 L* D Glucose 135 H Calcium 7.6 L D Phosphorus 4.70 H 08/03/16 08/03/16 04:50 04:50 WBC 15.1 H RBC MCHC [place] % (Auto) 7.7 H Dukes # 1.2 H Seg Neuts % (Manual) Lymphocytes % (Manual) Seg Neutrophils # 9.7 H Seg Neutrophils # Man Monocytes # (Manual) Sodium Potassium Glucose 114 H Calcium Phosphorus
--- NOTE | 2016-08-03 12:01 | Progress Note ---
Assessment and Plan Ventricular fibrillation with morphology of torsades Prolong QT interval on ECG Previously on methadone as outpatient Abdominal pain Leukocytosis Hypokalemia -replaced Hypertension Nonischemic cardiomyopathy [facility] 2015: normal coronaries, EF 35% Noncompliant with medications and outpatient cardiac f/u Polysubstance abuse Subjective Date of service: 08/03/16 Principal diagnosis: Polymorphic Ventricular Tachycardia Interval history: Patient tearful, asking for pain medications. No acute cardiac events overnight. Objective Vital Signs Temp Pulse Pulse Resp Resp BP Pulse Ox 08/03/16 10:00 71 65 16 14 125/82 100 08/03/16 09:00 67 25 H 123/79 96 08/03/16 08:50 65 16 119/72 97 08/03/16 08:40 67 10 L 119/72 99 08/03/16 08:30 77 13 119/72 100 08/03/16 08:20 68 11 L 119/72 98 08/03/16 08:10 67 10 L 119/72 100 08/03/16 08:00 97.9 F 58 L 9 L 119/72 99 08/03/16 07:50 73 13 115/69 100 08/03/16 07:40 76 13 115/69 99 08/03/16 07:35 97 08/03/16 07:30 68 20 115/69 97 08/03/16 07:20 57 L 23 115/69 98 08/03/16 07:10 64 21 115/69 97 08/03/16 07:00 57 L 23 115/69 96 08/03/16 06:50 62 20 118/64 96 08/03/16 06:40 76 15 118/64 99 08/03/16 06:30 59 L 29 H 118/64 96 08/03/16 06:20 61 21 118/64 96 08/03/16 06:10 60 28 H 118/64 94 08/03/16 06:00 55 L 59 L 21 118/64 97 08/03/16 05:50 63 22 118/77 94 08/03/16 05:40 68 25 H 118/77 95 08/03/16 05:30 68 24 118/77 95 08/03/16 05:20 66 24 118/77 97 08/03/16 05:10 60 26 H 118/77 95 08/03/16 05:03 13 08/03/16 05:00 61 16 118/77 96 08/03/16 04:50 62 13 104/65 96 08/03/16 04:40 64 16 104/65 98 08/03/16 04:30 64 11 L 104/65 100 08/03/16 04:20 62 22 104/65 96 08/03/16 04:10 61 20 104/65 97 08/03/16 04:00 98.8 F 58 L 26 H 108/74 98 08/03/16 03:50 60 29 H 108/74 97 08/03/16 03:40 63 21 108/74 96 08/03/16 03:30 63 18 108/74 97 08/03/16 03:20 62 22 108/74 96 08/03/16 03:10 60 20 108/74 96 08/03/16 03:00 63 8 L 98/60 96 08/03/16 02:50 62 22 106/69 97 08/03/16 02:40 58 L 18 106/69 97 08/03/16 02:30 59 L 22 106/69 97 08/03/16 02:20 56 L 12 106/69 96 08/03/16 02:10 61 23 106/69 96 08/03/16 02:00 61 61 20 108/74 97 08/03/16 01:50 57 L 18 106/69 96 08/03/16 01:40 62 22 106/69 94 08/03/16 01:30 56 L 21 106/69 95 08/03/16 01:20 59 L 21 106/69 93 08/03/16 01:10 60 24 106/69 94 08/03/16 01:00 60 22 106/69 95 08/03/16 00:50 61 20 112/61 95 08/03/16 00:40 59 L 20 112/61 97 08/03/16 00:30 58 L 13 112/61 97 08/03/16 00:20 74 14 112/61 96 08/03/16 00:10 60 30 H 112/61 99 08/03/16 00:00 98.0 F 66 27 H 112/61 98 08/02/16 23:50 70 13 119/66 96 08/02/16 23:40 68 21 119/66 97 08/02/16 23:30 69 22 119/66 97 08/02/16 23:20 66 23 119/66 97 05 23:10 67 23 119/66 96 05 23:00 66 17 137/112 96 05 22:50 66 10 L 137/112 97 05 22:40 68 13 137/112 98 08/02/16 22:30 73 12 137/112 97 08/02/16 22:20 73 10 L 137/112 96 05 22:10 73 12 145/99 97 08/02/16 22:00 68 13 145/99 97 08/02/16 21:50 70 11 L 145/99 97 08/02/16 21:40 72 11 L 145/99 05 21:36 69 145/99 05 21:20 74 145/99 05 21:12 77 145/99 05 21:00 100 H 11 L 145/99 08/02/16 20:53 99 08/02/16 20:50 74 13 145/99 99 08/02/16 20:40 81 15 145/99 98 05 20:30 69 24 145/99 98 05 20:20 68 14 121/80 100 0503 20:10 66 13 121/80 100 0503 20:00 64 13 121/80 99 05 19:53 96 08/02/16 19:50 67 14 121/80 100 05/03 19:48 97.9 F 08/02/16 19:40 67 17 121/80 96 0503 19:30 66 16 121/80 94 0503 19:20 70 12 121/92 95 0503 19:10 67 13 121/92 98 0503 19:00 69 9 L 121/92 97 [id number] 18:50 70 12 141/88 99 05/03/17 18:40 67 9 L 141/88 05/03/17 18:30 72 13 141/88 05/03/17 18:20 75 10 L 135/88 05/03/17 18:10 76 13 135/88 05/03/17 18:00 77 18 130/88 05/0317 17:50 72 10 L 05/03/17 17:40 68 8 L 05/03/17 17:31 71 13 134/95 08/02/16 17:21 62 11 L 134/95 100 08/02/16 17:11 66 13 134/95 98 08/02/16 17:01 68 10 L 134/95 99 08/02/16 16:51 69 9 L 136/93 99 08/02/16 16:41 71 12 136/93 98 08/02/16 16:30 73 12 132/84 97 08/02/16 16:21 67 8 L 136/93 96 08/02/16 16:11 68 9 L 136/93 97 08/02/16 16:01 69 8 L 128/77 97 08/02/16 16:00 97.8 F 08/02/16 15:51 74 11 L 128/77 99 08/02/16 15:41 65 8 L 128/77 99 08/02/16 15:31 65 11 L 128/77 98 08/02/16 15:21 71 16 128/77 99 08/02/16 15:11 71 11 L 128/77 97 08/02/16 15:01 69 13 128/77 95 08/02/16 14:51 11 L 134/88 93 08/02/16 14:41 65 13 134/88 99 08/02/16 14:31 64 10 L 134/88 96 08/02/16 14:21 65 10 L 135/78 98 08/02/16 14:11 69 12 135/78 99 08/02/16 14:01 73 10 L 135/78 98 08/02/16 13:51 72 14 137/87 99 08/02/16 13:41 71 11 L 137/87 100 08/02/16 13:31 66 12 143/91 95 08/02/16 13:21 84 12 143/91 96 08/02/16 13:11 77 14 143/91 08/02/16 13:01 61 12 143/91 100 08/02/16 12:51 61 9 L 163/91 100 08/02/16 12:41 104 H 15 170/86 08/02/16 12:31 59 L 10 L 170/86 100 08/02/16 12:29 65 11 L 170/86 96 08/02/16 12:00 98 F - Physical Examination General: No Apparent Distress HEENT: Positive: PERRL Neck: Positive: trachea midline Cardiac: Positive: Reg Rate and Rhythm Lungs: Positive: Decreased Breath Sounds - Labs and Meds CBC 08/03/16 Range/Units 04:50 WBC 15.1 H (4.5-11.0) K/mm3 RBC 4.44 (3.65-5.03) M/mm3 Hgb 12.8 (11.8-15.2) gm/dl Hct 38.3 D (35.5-45.6) % Plt Count 218 (140-440) K/mm3 Lymph # 3.8 (1.2-5.4) K/mm3 [place] # 1.2 H (0.0-0.8) K/mm3 Eos # 0.3 (0.0-0.4) K/mm3 Baso # 0.1 (0.0-0.1) K/mm3 Comprehensive Metabolic Panel 08/02/16 08/02/16 08/03/16 Range/Units 16:35 17:50 04:50 Sodium 135 L 141 (137-145) mmol/L Potassium 8.6 H* D 2.8 L* D 3.6 D (3.6-5.0) mmol/L Chloride 98.7 104.3 (98-107) mmol/L Carbon Dioxide 23 23 (22-30) mmol/L BUN 11 14 (9-20) mg/dL Creatinine 0.8 1.2 (0.8-1.5) mg/dL Glucose 135 H 114 H (75-100) mg/dL Calcium 7.6 L D 8.5 (8.4-10.2) mg/dL
[2016-08-03] MEDS: ROCEPHIN/NS 1 GM/50 ML 1 GM/50 ML BAG IV SCH (16:00)
[2016-08-03] MEDS ORDERED: DOLOPHINE PO SCH (16:00)
--- NOTE | 2016-08-03 18:49 | Progress Note ---
Assessment and Plan This is a 34-year-old male with history of cocaine use and polysubstance abuse presents to the emergency department with complaints of nausea, vomiting and right lower quadrant abdominal pain. ( Off note Patient was here in April 2015 complaints of nausea vomiting. A gallbladder ultrasound was done at that time suggestive of possible sludge versus stones in the gallbladder without any indication of obstructive process). After admission he developed Vfib and transferred to ICU. Now she is on amioderone drip. He had similar episode in Dec 2014 admitted with initial abdominal complaints and subsequently went into V fib arrest. He was followed by cardiology that time with normal coronaries per cath and EF was 45-50%. He was ultimately discharged at that time with a Life vest, however, per note, he refused to wear it after 1 week. V-fib with torsads - on lidocaine drip now - cardiology recommended he will need ICD - 2D echo showed preserved EF Polysubatance abuse - on methadone as outpt -off methadone now per cardiology recommendation -placed on CIWA protocol to prevent withdrawl - also getting prn percocet and morphin Leukocytosis with fever - likely from UTI - WBC trending down, - cont abx for now, follow sepsis protocol - follow final cx work up Abdominal pain with N/V - had HIDA scan showed billiary dyskinesia - he is tolerating diet now - will consult GS for further recommendation Subjective Date of service: 08/03/16 Principal diagnosis: Polymorphic Ventricular Tachycardia Interval history: Patient seen and examined. Medical records and medication list reviewed. No acute event overnight noted by the RN. Patient denies any chest pain or difficulty breathing. c/o generalized pain Discussed plan of care at bedside with patient. Objective - Exam Narrative Exam: GENERAL: well-developed and well-nourished WM lying on bed appeared to be in moderate discomfort. HEENT: Normocephalic. Atraumatic. No conjunctival congestion or icterus. Patient has moist mucous membranes. NECK: Supple. Trachea midline. CHEST/LUNGS: Clear to auscultated bilaterally, breathing nonlabored. No wheezes crackles or rhonchi. HEART/CARDIOVASCULAR: Regular in rate and rhythm. S1 and S2 positive. ABDOMEN: Abdomen is soft, nontender. Patient has normal bowel sounds. SKIN: There is no rash. Warm and dry. NEURO: No focal motor deficit. Follows command. MUSCULOSKELETAL: No joint effusion or tenderness. EXTRIMITY: No edema, no cyanosis or clubbing. PSYCH: Cooperative. - Constitutional Vitals: Vital Signs - 12hr 08/03/16 08/03/16 08/03/16 06:50 07:00 07:10 Temperature Pulse Rate 62 57 L 64 Pulse Rate [ Left] Respiratory 20 23 21 Rate Respiratory Rate [denies] Blood Pressure 118/64 115/69 115/69 O2 Sat by Pulse 96 96 97 Oximetry 08/03/16 08/03/16 08/03/16 07:20 07:30 07:35 Temperature Pulse Rate 57 L 68 Pulse Rate [ Left] Respiratory 23 20 Rate Respiratory Rate [denies] Blood Pressure 115/69 115/69 O2 Sat by Pulse 98 97 97 Oximetry 08/03/16 08/03/16 08/03/16 07:40 07:50 08:00 Temperature 97.9 F Pulse Rate 76 73 58 L Pulse Rate [ Left] Respiratory 13 13 9 L Rate Respiratory Rate [denies] Blood Pressure 115/69 115/69 119/72 O2 Sat by Pulse 99 100 99 Oximetry 08/03/16 08/03/16 08/03/16 08:10 08:20 08:30 Temperature Pulse Rate 67 68 77 Pulse Rate [ Left] Respiratory 10 L 11 L 13 Rate Respiratory Rate [denies] Blood Pressure 119/72 119/72 119/72 O2 Sat by Pulse 100 98 100 Oximetry 08/03/16 08/03/16 08/03/16 08:40 08:50 09:00 Temperature Pulse Rate 67 65 67 Pulse Rate [ Left] Respiratory 10 L 16 25 H Rate Respiratory Rate [denies] Blood Pressure 119/72 119/72 123/79 O2 Sat by Pulse 99 97 96 Oximetry 08/03/16 08/03/16 08/03/16 10:00 10:29 11:00 Temperature Pulse Rate 71 66 Pulse Rate [ 65 Left] Respiratory 16 15 9 L Rate Respiratory 14 Rate [denies] Blood Pressure 125/82 122/85 O2 Sat by Pulse 100 98 Oximetry 08/03/16 08/03/16 08/03/16 12:00 13:00 14:00 Temperature 97.3 F L Pulse Rate 64 70 69 Pulse Rate [ Left] Respiratory 10 L 10 L 23 Rate Respiratory Rate [denies] Blood Pressure 126/78 126/78 144/87 O2 Sat by Pulse 91 Oximetry 08/03/16 08/03/16 08/03/16 14:17 15:51 17:00 Temperature 97.3 F L Pulse Rate Pulse Rate [ Left] Respiratory 13 13 Rate Respiratory Rate [denies] Blood Pressure O2 Sat by Pulse Oximetry - Labs CBC & Chem 7: 08/03/16 04:50 08/03/16 04:50 Labs: Abnormal lab results 08/02/16 08/03/16 08/03/16 Range/Units 17:50 04:50 04:50 WBC 15.1 H (4.5-11.0) K/mm3 [place] % (Auto) 7.7 H (0.0-7.3) % [place] # 1.2 H (0.0-0.8) K/mm3 Seg Neutrophils # 9.7 H (1.8-7.7) K/mm3 Potassium 2.8 L* D (3.6-5.0) mmol/L Glucose 114 H (75-100) mg/dL
[2016-08-03] MEDS ORDERED: ZOSYN/NS 4.5GM/100ML 4.5 GM/100 ML VIAL IV SCH (22:00)
[2016-08-04] MEDS: MORPHINE IV PRN ×7 (00:33→20:46)
[2016-08-04] MEDS: ATIVAN IV PRN ×8 (00:34→21:47)
[2016-08-04] MEDS: XYLOCAINE/D5W 2GM/500ML DRIP 2,000 MG/500 ML BAG IV SCH (04:00)
[2016-08-04 06:38] LABS: Anion Gap 20 mmol/L; Blood Urea Nitrogen 13 mg/dL (9-20); Calcium 8.4 mg/dL (8.4-10.2); Carbon Dioxide 21 mmol/L (22-30); Chloride 100.8 mmol/L (98-107); Glucose 176 mg/dL (75-100); Potassium 3.8 mmol/L (3.6-5.0); Sodium 138 mmol/L (137-145)
[2016-08-04 06:48] LABS: Basophils % (Auto) 0.8 % (0.0-1.8); Eosinophils % (Auto) 4.6 % (0.0-4.3); Hematocrit 37.4 % (35.5-45.6); Hemoglobin 12.3 gm/dl (11.8-15.2); Mean Corpuscular HGB Conc 33 % (32-34); Mean Corpuscular Hemoglobin 29 pg (28-32); Mean Corpuscular Volume 87 fl (84-94); Platelet Count 212 K/mm3 (140-440); Red Blood Count 4.28 M/mm3 (3.65-5.03); White Blood Count 13.5 K/mm3 (4.5-11.0)
[2016-08-04] MEDS: PEPCID PO SCH (09:02)
[2016-08-04] MEDS: XANAX PO SCH ×2 (09:03→22:58)
[2016-08-04] MEDS: ROCEPHIN/NS 1 GM/50 ML 1 GM/50 ML BAG IV SCH (09:03)
[2016-08-04] MEDS: LOVENOX SUB-Q SCH (09:04)
[2016-08-04] MEDS: BABY ASPIRIN PO SCH (09:05)
[2016-08-04] MEDS: ZESTRIL PO SCH (09:05)
--- NOTE | 2016-08-04 09:52 | Progress Note ---
Assessment and Plan Ventricular fibrillation with morphology of torsades Prolong QT interval on ECG. Previously on methadone as outpatient. Now discontinued. Abdominal pain Leukocytosis Hypokalemia -replaced Hypertension Nonischemic cardiomyopathy [facility] 2015: normal coronaries, EF 35% Noncompliant with medications and outpatient cardiac f/u Polysubstance abuse Recommendations: Stop lidocaine drip. Repeat ECG. Primary team for management of pain. Lifevest prior to discharge. Subjective Date of service: 08/04/16 Principal diagnosis: Polymorphic Ventricular Tachycardia Interval history: Continue on lidocaine drip. No cardiac events on telemetry overnight. Objective Vital Signs Temp Pulse Pulse Resp Resp BP Pulse Ox 08/04/16 09:05 82 128/74 08/04/16 09:01 12 08/04/16 07:10 10 L 08/04/16 06:00 65 60 21 124/84 96 08/04/16 05:56 18 08/04/16 05:00 80 23 129/74 97 08/04/16 04:00 98.3 F 67 24 125/69 95 08/04/16 03:00 81 23 139/97 08/04/16 02:01 139/97 08/04/16 02:00 62 21 96 08/04/16 01:00 67 15 134/87 96 08/04/16 00:37 98.5 F 08/04/16 00:33 19 08/04/16 00:00 70 13 139/87 08/03/16 23:12 70 15 149/87 08/03/16 23:00 74 18 149/87 08/03/16 22:00 80 70 14 143/80 95 08/03/16 21:39 12 08/03/16 21:00 80 22 160/97 96 08/03/16 20:45 98.8 F 08/03/16 20:00 78 11 L 142/71 08/03/16 19:00 78 11 L 151/85 08/03/16 18:01 142/71 08/03/16 17:00 97.3 F L 74 11 L 165/96 08/03/16 16:21 15 08/03/16 16:00 73 13 159/88 08/03/16 15:51 13 08/03/16 15:00 67 15 137/75 08/03/16 14:17 13 08/03/16 14:00 69 23 144/87 91 0504/17 13:00 78 10 L 126/78 08/03/16 12:00 97.3 F L 64 10 L 126/78 08/03/16 11:00 66 9 L 122/85 98 08/03/16 10:29 15 08/03/16 10:00 71 65 16 14 125/82 100 - Physical Examination General: No Apparent Distress HEENT: Positive: PERRL Neck: Positive: trachea midline Cardiac: Positive: Reg Rate and Rhythm - Labs and Meds CBC 08/04/16 Range/Units 04:00 WBC 13.5 H (4.5-11.0) K/mm3 RBC 4.28 (3.65-5.03) M/mm3 Hgb 12.3 (11.8-15.2) gm/dl Hct 37.4 (35.5-45.6) % Plt Count 212 (140-440) K/mm3 Lymph # 3.0 (1.2-5.4) K/mm3 [place] # 1.0 H (0.0-0.8) K/mm3 Eos # 0.6 H (0.0-0.4) K/mm3 Baso # 0.1 (0.0-0.1) K/mm3 Comprehensive Metabolic Panel 08/04/16 Range/Units 04:00 Sodium 138 (137-145) mmol/L Potassium 3.8 (3.6-5.0) mmol/L Chloride 100.8 (98-107) mmol/L Carbon Dioxide 21 L (22-30) mmol/L BUN 13 (9-20) mg/dL Creatinine 1.0 (0.8-1.5) mg/dL Glucose 176 H (75-100) mg/dL Calcium 8.4 (8.4-10.2) mg/dL
--- NOTE | 2016-08-04 10:33 | Progress Note ---
Assessment and Plan - Patient Problems (1) Torsades de pointes Current Visit: Yes Status: Acute Plan to address problem: - no recurrence - electrolytes corrected - methadone on hold - off lidocaine drip now - management per cardiology (2) Opiate dependence Current Visit: Yes Status: Acute Qualifiers: Substance use status: uncomplicated Complication of substance-induced condition: C Qualified Code(s): F11.20 - Opioid dependence, uncomplicated Plan to address problem: - use prn morphine in short term - also CIWA protocol oredered - may need to find other pain treatment modality even after AICD implantation re : arrhythmia risk (3) Common bile duct dilation Current Visit: Yes Status: Acute Plan to address problem: - will follow GI recs - surgery input requested (4) Leukocytosis Current Visit: No Status: Acute Qualifiers: Leukocytosis type: L Plan to address problem: - will de-escalate AB's - all cultures NGTD - CRP pending (5) Discharge planning issues Current Visit: Yes Status: Acute Plan to address problem: ...will transfer to telemetry once cleared by cardiology Subjective Date of service: 08/04/16 Principal diagnosis: Polymorphic Ventricular Tachycardia Interval history: Seen and examined at bedside; 24 hour events reviewed; nursing and respiratory care staff consulted; no adverse overnight events reported to me; resting peacefully; denies acute chest pains or increased SOB; Off lidocaine drip; no N/ V/F/C Objective Vital Signs - 12hr 08/03/16 08/03/16 08/04/16 23:00 23:12 00:00 Temperature Pulse Rate 74 70 70 Pulse Rate [ Left] Respiratory 18 15 13 Rate Blood Pressure 149/87 149/87 139/87 O2 Sat by Pulse Oximetry 08/04/16 08/04/16 08/04/16 00:33 00:37 01:00 Temperature 98.5 F Pulse Rate 67 Pulse Rate [ Left] Respiratory 19 15 Rate Blood Pressure 134/87 O2 Sat by Pulse 96 Oximetry 08/04/16 08/04/16 08/04/16 02:00 02:01 03:00 Temperature Pulse Rate 81 Pulse Rate [ 62 Left] Respiratory 21 23 Rate Blood Pressure 139/97 139/97 O2 Sat by Pulse 96 Oximetry 08/04/16 08/04/16 08/04/16 04:00 05:00 05:56 Temperature 98.3 F Pulse Rate 67 80 Pulse Rate [ Left] Respiratory 24 23 18 Rate Blood Pressure 125/69 129/74 O2 Sat by Pulse 95 97 Oximetry 08/04/16 08/04/16 08/04/16 06:00 07:10 09:01 Temperature Pulse Rate 65 Pulse Rate [ 60 Left] Respiratory 21 10 L 12 Rate Blood Pressure 124/84 O2 Sat by Pulse 96 Oximetry 08/04/16 09:05 Temperature Pulse Rate 82 Pulse Rate [ Left] Respiratory Rate Blood Pressure 128/74 O2 Sat by Pulse Oximetry Constitutional: alert, appears uncomfortable Eyes: non-icteric ENT: oropharynx moist Neck: supple, no lymphadenopathy Effort: normal Ascultation: Bilateral: clear Cardiovascular: regular rate and rhythm Gastrointestinal: normoactive bowel sounds, soft, tender (mild RUQ), non- distended Integumentary: normal Extremities: no cyanosis, no edema, pink and warm, pulses normal, no ischemia or petechiae Neurologic: normal mental status, non-focal exam, pupils equal and round, motor strength normal and Psychiatric: other (emotionally labile) CBC and BMP: 08/04/16 04:00 08/04/16 04:00 Abnormal lab findings: Abnormal Labs 08/01/16 08/02/16 08/02/16 23:30 05:02 05:02 WBC 29.0 H 27.0 H RBC 5.09 H MCHC 35 H [place] % (Auto) Eos % (Auto) [place] # Eos # Seg Neuts % (Manual) 78.0 H 72.0 H Lymphocytes % (Manual) 11.0 L Seg Neutrophils # Seg Neutrophils # Man 22.6 H 19.4 H Monocytes # (Manual) 1.7 H 1.9 H Sodium Potassium Carbon Dioxide Glucose 139 H Calcium Phosphorus 08/02/16 08/02/16 08/02/16 05:02 16:35 17:50 WBC RBC MCHC [place] % (Auto) Eos % (Auto) [place] # Eos # Seg Neuts % (Manual) Lymphocytes % (Manual) Seg Neutrophils # Seg Neutrophils # Man Monocytes # (Manual) Sodium 135 L Potassium 8.6 H* D 2.8 L* D Carbon Dioxide Glucose 135 H Calcium 7.6 L D Phosphorus 4.70 H 08/03/16 08/03/16 08/04/16 04:50 04:50 04:00 WBC 15.1 H 13.5 H RBC MCHC [place] % (Auto) 7.7 H Eos % (Auto) 4.6 H [place] # 1.2 H 1.0 H Eos # 0.6 H Seg Neuts % (Manual) Lymphocytes % (Manual) Seg Neutrophils # 9.7 H 8.9 H Seg Neutrophils # Man Monocytes # (Manual) Sodium Potassium Carbon Dioxide Glucose 114 H Calcium Phosphorus 08/04/16 04:00 WBC RBC MCHC [place] % (Auto) Eos % (Auto) [place] # Eos # Seg Neuts % (Manual) Lymphocytes % (Manual) Seg Neutrophils # Seg Neutrophils # Man Monocytes # (Manual) Sodium Potassium Carbon Dioxide 21 L Glucose 176 H Calcium Phosphorus
[2016-08-04] MEDS: PERCOCET 5/325 PO PRN ×2 (10:49→19:51)
--- NOTE | 2016-08-04 15:51 | Progress Note ---
Assessment and Plan This is a 34-year-old male with history of cocaine use and polysubstance abuse presents to the emergency department with complaints of nausea, vomiting and right lower quadrant abdominal pain. ( Off note Patient was here in April 2015 complaints of nausea vomiting. A gallbladder ultrasound was done at that time suggestive of possible sludge versus stones in the gallbladder without any indication of obstructive process). After admission he developed Vfib and transferred to ICU. Now she is on amioderone drip. He had similar episode in Dec 2014 admitted with initial abdominal complaints and subsequently went into V fib arrest. He was followed by cardiology that time with normal coronaries per cath and EF was 45-50%. He was ultimately discharged at that time with a Life vest, however, per note, he refused to wear it after 1 week. V-fib with torsads - off lidocaine drip now - cardiology recommended lifevest - 2D echo showed preserved EF - transfer to telemetry today Polysubatance abuse - on methadone as outpt -off methadone now per cardiology recommendation -placed on CIWA protocol to prevent withdrawl - also getting prn percocet and morphine - will change morphine to dilaudid Leukocytosis with fever - likely from UTI - WBC trending down, - cont abx for now, follow sepsis protocol - follow final cx work up Abdominal pain with N/V - had HIDA scan showed billiary dyskinesia - he is tolerating diet now - consult GS but recommended no surgical intervention Subjective Date of service: 08/04/16 Principal diagnosis: Polymorphic Ventricular Tachycardia Interval history: Patient seen and examined. Medical records and medication list reviewed. No acute event overnight noted by the RN. Patient denies any chest pain or difficulty breathing. continue to c/o generalized pain Discussed plan of care at bedside with patient. Objective - Exam Narrative Exam: GENERAL: well-developed and well-nourished WM lying on bed appeared to be in moderate discomfort. HEENT: Normocephalic. Atraumatic. No conjunctival congestion or icterus. Patient has moist mucous membranes. NECK: Supple. Trachea midline. CHEST/LUNGS: Clear to auscultated bilaterally, breathing nonlabored. No wheezes crackles or rhonchi. HEART/CARDIOVASCULAR: Regular in rate and rhythm. S1 and S2 positive. ABDOMEN: Abdomen is soft, nontender. Patient has normal bowel sounds. SKIN: There is no rash. Warm and dry. NEURO: No focal motor deficit. Follows command. MUSCULOSKELETAL: No joint effusion or tenderness. EXTRIMITY: No edema, no cyanosis or clubbing. PSYCH: Cooperative. - Constitutional Vitals: Vital Signs - 12hr 08/04/16 08/04/16 08/04/16 04:00 05:00 05:56 Temperature 98.3 F Pulse Rate 67 80 Pulse Rate [ Left] Respiratory 24 23 18 Rate Respiratory Rate [denies] Blood Pressure 125/69 129/74 O2 Sat by Pulse 95 97 Oximetry 08/04/16 08/04/16 08/04/16 06:00 07:00 07:10 Temperature Pulse Rate 65 66 Pulse Rate [ 60 Left] Respiratory 21 20 10 L Rate Respiratory Rate [denies] Blood Pressure 124/84 125/80 O2 Sat by Pulse 96 98 Oximetry 08/04/16 08/04/16 08/04/16 08:00 09:00 09:01 Temperature 98.3 F Pulse Rate 64 87 Pulse Rate [ Left] Respiratory 23 15 12 Rate Respiratory Rate [denies] Blood Pressure 125/80 128/74 O2 Sat by Pulse Oximetry 08/04/16 08/04/16 08/04/16 09:05 09:31 10:00 Temperature Pulse Rate 82 76 Pulse Rate [ Left] Respiratory 13 12 Rate Respiratory 12 Rate [denies] Blood Pressure 128/74 146/91 O2 Sat by Pulse Oximetry 08/04/16 08/04/16 08/04/16 10:49 11:00 11:49 Temperature Pulse Rate 83 Pulse Rate [ Left] Respiratory 12 14 14 Rate Respiratory Rate [denies] Blood Pressure 142/86 O2 Sat by Pulse Oximetry 08/04/16 08/04/16 12:18 14:49 Temperature Pulse Rate Pulse Rate [ Left] Respiratory 10 L 22 Rate Respiratory Rate [denies] Blood Pressure O2 Sat by Pulse Oximetry - Labs CBC & Chem 7: 08/04/16 04:00 08/04/16 04:00 Labs: Abnormal lab results 08/04/16 08/04/16 Range/Units 04:00 04:00 WBC 13.5 H (4.5-11.0) K/mm3 Eos % (Auto) 4.6 H (0.0-4.3) % [place] # 1.0 H (0.0-0.8) K/mm3 Eos # 0.6 H (0.0-0.4) K/mm3 Seg Neutrophils # 8.9 H (1.8-7.7) K/mm3 Carbon Dioxide 21 L (22-30) mmol/L Glucose 176 H (75-100) mg/dL
--- NOTE | 2016-08-04 15:56 | Consultation ---
History of Present Illness Consult date: 08/04/16 Reason for consult: gallstones Requesting physician: NADIA SUAZO Chief complaint: Nausea and vomiting - History of present illness History of present illness: Is a 36-year-old male presented to the ER with several days of nausea and vomiting. Patient has a history of polysubstance abuse and stated that he went through several bouts of nausea and vomiting following taking his methadone. He was seen in the ED and an ultrasound was positive for gallbladder sludge/ small stones. The patient was also noted to be have an arrhythmia. He was seen in January 2016 with similar symptoms and was giving a LifeVest to monitor his cardiac disease. Currently the patient states that he is tolerating by mouth without difficulty. He denies any current nausea vomiting. A HIDA scan during this admission, shows an ejection fraction at 13%. Surgery has been consult for evaluation of biliary disease. Past History Past Medical History: hypertension, other (V. fib arrest, cocaine use polysubstance abuse) Past Surgical History: No surgical history Social history: other (polysubstance abuse and cocaine) Family history: no significant family history Medications and Allergies Allergies Allergy/AdvReac Type Severity Reaction Status Date / Time No Known Allergies Allergy Verified 01/12/15 09:42 Home Medications Medication Instructions Recorded Confirmed Last Taken Type Methadone [Dolophine] 160 mg PO QDAY 01/10/15 08/01/16 01/09/15 History Active Meds: Active Medications Acetaminophen (Tylenol) 650 mg PO Q4H PRN PRN Reason: Pain MILD(1-3)/Fever >100.5/FAM Alprazolam (Xanax) 1 mg PO BID [facility] Last Admin: 08/04/16 09:03 Dose: 1 mg Aspirin (Baby Aspirin) 81 mg PO QDAY [facility] Last Admin: 08/04/16 09:05 Dose: 81 mg Bisacodyl (Dulcolax) 10 mg RI QDAY PRN PRN Reason: Constipation unrelieved by MOM Enoxaparin Sodium (Lovenox) 40 mg SUB-Q QDAY [facility] Last Admin: 08/04/16 09:04 Dose: 40 mg Famotidine (Pepcid) 20 mg PO QDAY [facility] Last Admin: 08/04/16 09:02 Dose: 20 mg Ceftriaxone Sodium (Rocephin/Ns 1 Gm/50 Ml) 1 gm in 50 mls @ 100 mls/hr IV Q24HR LYNDSAY Last Admin: 08/04/16 09:03 Dose: 100 mls/hr Lisinopril (Zestril) 10 mg PO QDAY LYNDSAY Last Admin: 08/04/16 09:05 Dose: 10 mg Lorazepam (Ativan) 2 mg IV Q1HR PRN PRN Reason: CIWA-Ar 8-15 Last Admin: 08/04/16 14:49 Dose: 2 mg Lorazepam (Ativan) 4 mg IV Q1HR PRN PRN Reason: CIWA-Ar 16-25 Last Admin: 08/04/16 00:34 Dose: 4 mg Magnesium Hydroxide (Milk Of Magnesia) 30 ml PO Q4H PRN PRN Reason: Constipation Metoclopramide HCl (Reglan) 10 mg IV Q6H PRN PRN Reason: Nausea And Vomiting Morphine Sulfate (Morphine) 4 mg IV Q3H PRN PRN Reason: Pain , Severe (7-10) Last Admin: 08/04/16 14:49 Dose: 4 mg Oxycodone/Acetaminophen (Percocet 5/325) 2 tab PO Q6H PRN PRN Reason: Pain, Moderate (4-6) Last Admin: 08/04/16 10:49 Dose: 2 tab Exam Vital Signs Temp Pulse BP Pulse Ox 98.1 F 59 L 201/105 100 08/01/16 06:52 08/01/16 06:52 08/01/16 06:52 08/01/16 06:52 - General physical appearance Positive: no distress - Respiratory Positive: normal expansion - Cardiovascular Rhythm: regular - Extremities Extremities: no ischemia - Abdomen Abdomen: Present: soft. Absent: tender, distended, masses, rebound, guarding - Neurologic Neurologic: alert and oriented to time, place and person Results - Labs 08/04/16 04:00 08/04/16 04:00 Abnormal lab results 08/04/16 08/04/16 Range/Units 04:00 04:00 WBC 13.5 H (4.5-11.0) K/mm3 Eos % (Auto) 4.6 H (0.0-4.3) % [place] # 1.0 H (0.0-0.8) K/mm3 Eos # 0.6 H (0.0-0.4) K/mm3 Seg Neutrophils # 8.9 H (1.8-7.7) K/mm3 Carbon Dioxide 21 L (22-30) mmol/L Glucose 176 H (75-100) mg/dL Diabetes panel 08/04/16 Range/Units 04:00 Sodium 138 (137-145) mmol/L Potassium 3.8 (3.6-5.0) mmol/L Chloride 100.8 (98-107) mmol/L Carbon Dioxide 21 L (22-30) mmol/L BUN 13 (9-20) mg/dL Creatinine 1.0 (0.8-1.5) mg/dL Glucose 176 H (75-100) mg/dL Calcium 8.4 (8.4-10.2) mg/dL Calcium panel 08/04/16 Range/Units 04:00 Calcium 8.4 (8.4-10.2) mg/dL Pituitary panel 08/04/16 Range/Units 04:00 Sodium 138 (137-145) mmol/L Potassium 3.8 (3.6-5.0) mmol/L Chloride 100.8 (98-107) mmol/L Carbon Dioxide 21 L (22-30) mmol/L BUN 13 (9-20) mg/dL Creatinine 1.0 (0.8-1.5) mg/dL Glucose 176 H (75-100) mg/dL Calcium 8.4 (8.4-10.2) mg/dL Adrenal panel 08/04/16 Range/Units 04:00 Sodium 138 (137-145) mmol/L Potassium 3.8 (3.6-5.0) mmol/L Chloride 100.8 (98-107) mmol/L Carbon Dioxide 21 L (22-30) mmol/L BUN 13 (9-20) mg/dL Creatinine 1.0 (0.8-1.5) mg/dL Glucose 176 H (75-100) mg/dL Calcium 8.4 (8.4-10.2) mg/dL Assessment and Plan The patient currently is tolerating by mouth without any signs of nausea and vomiting. His only complaint is lack of receiving his methadone. According to the patient's history is nausea vomiting was closely tied to methadone ingestion and while I cannot rule out the gallbladder as being the source of his symptoms it is more likely that this is serving as as being a partial etiology for the nausea and vomiting. There does not appear to be a signs of acute cholecystitis and at best I would call this symptomatic cholelithiasis/ biliary colic. As such, I recommend outpatient follow-up for laparoscopic cholecystectomy with IOC once he has been cleared from a cardiology standpoint. I discussed this with the patient was amenable. No further surgical intervention is needed at this time. We'll sign off. Thanks for the consult.
[2016-08-05] MEDS: MORPHINE IV PRN (00:02)
[2016-08-05] MEDS ORDERED: DILAUDID IV PRN (01:04)
[2016-08-05 05:29] VITALS: BP 166/80
[2016-08-05 06:28] LABS: Hematocrit 39.6 % (35.5-45.6); Hemoglobin 12.9 gm/dl (11.8-15.2); Mean Corpuscular HGB Conc 33 % (32-34); Mean Corpuscular Hemoglobin 28 pg (28-32); Mean Corpuscular Volume 87 fl (84-94); Platelet Count 226 K/mm3 (140-440); Red Blood Count 4.56 M/mm3 (3.65-5.03); White Blood Count 13.5 K/mm3 (4.5-11.0)
--- NOTE | 2016-08-05 12:27 | Progress Note ---
Assessment and Plan - Patient Problems (1) Torsades de pointes Current Visit: Yes Status: Acute (2) Opiate dependence Current Visit: Yes Status: Acute Qualifiers: Substance use status: uncomplicated Complication of substance-induced condition: C Qualified Code(s): F11.20 - Opioid dependence, uncomplicated (3) Common bile duct dilation Current Visit: Yes Status: Acute (4) Leukocytosis Current Visit: No Status: Acute Qualifiers: Leukocytosis type: L (5) Discharge planning issues Current Visit: Yes Status: Acute Subjective Date of service: 08/05/16 Principal diagnosis: Polymorphic Ventricular Tachycardia Interval history: Seen and examined at bedside; 24 hour events reviewed; nursing and respiratory care staff consulted; no adverse overnight events reported to me; Objective Vital Signs - 12hr 08/05/16 08/05/16 00:48 05:27 Temperature 97.8 F 97.9 F Pulse Rate [ 60 62 Left Radial] Respiratory 18 20 Rate Blood Pressure 144/74 166/80 [Left Arm] O2 Sat by Pulse 99 99 Oximetry Constitutional: alert, appears uncomfortable Eyes: non-icteric ENT: oropharynx moist Neck: supple, no lymphadenopathy Effort: normal Ascultation: Bilateral: clear Cardiovascular: regular rate and rhythm Gastrointestinal: normoactive bowel sounds, soft, tender (mild RUQ), non- distended Integumentary: normal Extremities: no cyanosis, no edema, pink and warm, pulses normal, no ischemia or petechiae Neurologic: normal mental status, non-focal exam, pupils equal and round, motor strength normal and Psychiatric: other (emotionally labile) CBC and BMP: 08/05/16 06:00 08/04/16 04:00 Abnormal lab findings: Abnormal Labs 08/01/16 08/02/16 08/02/16 23:30 05:02 05:02 WBC 29.0 H 27.0 H RBC 5.09 H MCHC 35 H [place] % (Auto) Eos % (Auto) [place] # Eos # Seg Neuts % (Manual) 78.0 H 72.0 H Lymphocytes % (Manual) 11.0 L Seg Neutrophils # Seg Neutrophils # Man 22.6 H 19.4 H Monocytes # (Manual) 1.7 H 1.9 H Sodium Potassium Carbon Dioxide Glucose 139 H Calcium Phosphorus 08/02/16 08/02/16 08/02/16 05:02 16:35 17:50 WBC RBC MCHC [place] % (Auto) Eos % (Auto) [place] # Eos # Seg Neuts % (Manual) Lymphocytes % (Manual) Seg Neutrophils # Seg Neutrophils # Man Monocytes # (Manual) Sodium 135 L Potassium 8.6 H* D 2.8 L* D Carbon Dioxide Glucose 135 H Calcium 7.6 L D Phosphorus 4.70 H 08/03/16 08/03/16 08/04/16 04:50 04:50 04:00 WBC 15.1 H 13.5 H RBC MCHC [place] % (Auto) 7.7 H Eos % (Auto) 4.6 H [place] # 1.2 H 1.0 H Eos # 0.6 H Seg Neuts % (Manual) Lymphocytes % (Manual) Seg Neutrophils # 9.7 H 8.9 H Seg Neutrophils # Man Monocytes # (Manual) Sodium Potassium Carbon Dioxide Glucose 114 H Calcium Phosphorus 08/04/16 08/05/16 04:00 06:00 WBC 13.5 H RBC MCHC [place] % (Auto) Eos % (Auto) [place] # Eos # Seg Neuts % (Manual) Lymphocytes % (Manual) Seg Neutrophils # Seg Neutrophils # Man Monocytes # (Manual) Sodium Potassium Carbon Dioxide 21 L Glucose 176 H Calcium Phosphorus
--- NOTE | 2016-08-05 13:50 | Discharge Summary ---
Providers - Providers Date of Admission: 08/01/16 10:56 Date of discharge: 08/05/16 Attending physician: MARIAN TRAN 08/01/16 14:46 Consult to Physician [CONS] Urgent Consulting Provider: NADIA SUAZO Reason For Exam: critical care consult Place consult to:: Dr. Seo Notified:: Martha ICU hot metal charger Comment:: states she will call him when pt gets to ICU 08/02/16 13:06 PICC Line Insertion [Consult to PICC Line RN] [CONS] Urgent Reason For Exam: need central venous access Type Line:: PICC 08/03/16 14:28 Consult to Physician [CONS] Routine Consulting Provider: SAMI TEJADA Reason For Exam: RUQ pain; Dilated CBD Place consult to:: Notified:: yes Was contact made?: Yes 08/04/16 09:20 Consult to Physician [CONS] Routine Consulting Provider: BRENDON CAZARES I Reason For Exam: biliary dyskinesia Place consult to:: office Notified:: yes If yes, spoke with:: joby Time called:: 10:30 Primary care physician: HOGSHEAD COOPER Hospitalization Condition: Stable Hospital course: This is a 34-year-old male with history of cocaine use and polysubstance abuse presents to the emergency department with complaints of nausea, vomiting and right lower quadrant abdominal pain. ( Off note Patient was here in April 2015 complaints of nausea vomiting. A gallbladder ultrasound was done at that time suggestive of possible sludge versus stones in the gallbladder without any indication of obstructive process). After admission he developed Vfib and transferred to ICU. He had similar episode in Dec 2014 admitted with initial abdominal complaints and subsequently went into V fib arrest. He was followed by cardiology that time with normal coronaries per cath and EF was 45-50%. He was ultimately discharged at that time with a Life vest, however, per note, he refused to wear it after 1 week. Discharge Diagnosis and management: V-fib with torsads - had similar presentation in the past - s/p amioderone and lidocaine drip - cardiology recommended lifevest - 2D echo obtained during this admission showed preserved EF - monitored at ICU then transferred to telemetry - HR was stable on po meds Polysubatance abuse - on methadone as outpt - was off methadone per cardiology recommendation - placed on CIWA protocol to prevent withdrawl - also was getting prn percocet and morphine - later changed morphine to dilaudid to control his pain - he still demanded methadone and left AMA Leukocytosis with fever - likely from UTI - WBC trended down, - continued with iv abx and sepsis protocol Abdominal pain with N/V - had HIDA scan showed billiary dyskinesia - he was tolerating diet now - consult GS but recommended no surgical intervention Disposition: LEFT AGAINST MEDICAL ADVICE Core Measure Documentation - Palliative Care Palliative Care/ Comfort Measures: Not Applicable - Core Measures Any of the following diagnoses?: none Exam - Constitutional Vitals: Temp Pulse Resp BP Pulse Ox 97.9 F 62 20 166/80 99 08/05/16 05:27 08/05/16 05:27 08/05/16 05:27 08/05/16 05:27 08/05/16 05:27 Plan Follow up with: PRIMARY CAREMD [Primary Care Provider] - 3-5 Days Forms: AMA Form
== END 2016-08-05 09:30 | disposition left against medical advice (07) | DRG 309 ==
LOC: ED 06:41 → 4A 10:56 → CC1 15:00 → 4A 08-04 21:24
PROVIDERS: ADMIT Hospitalist; ATTEND Internal Medicine
DX: I49.01 Ventricular fibrillation (principal); F11.20 Opioid dependence, uncomplicated; N39.0 Urinary tract infection, site not specified; K83.8 Other specified diseases of biliary tract; K80.50 Calculus of bile duct without cholangitis or cholecystitis without obstruction; I42.9 Cardiomyopathy, unspecified; F19.10 Other psychoactive substance abuse, uncomplicated; F14.10 Cocaine abuse, uncomplicated; I10 Essential (primary) hypertension; D72.829 Elevated white blood cell count, unspecified; E87.6 Hypokalemia; F17.210 Nicotine dependence, cigarettes, uncomplicated; I45.81 Long QT syndrome; K82.8 Other specified diseases of gallbladder; Z91.14 Patient's other noncompliance with medication regimen
CPT/HCPCS: 36415; 70450; 71010; 76705; 78227; 80048; 80053; 80307; 81001; 82140; 83690; 83735; 84100; 84132; 84484; 85007; 85025; 85027; 86140; 87040; 87086; 93005; 93010; 93306; 96365; 96375; 96376; A9537; J0282; J0696; J1170; J1650; J2001; J2060; J2270; J2405; J2543; J2805; J3475; J3480; J7030; J7060